=== PATIENT | male | born 1975 | race Caucasian/White ===

== ENCOUNTER 2017-11-30 20:23 | Emergency (ER) | payer OTHER, SELFPAY ==
[2017-11-30 21:26] LABS: Urine Blood NEGATIVE (NEG); Urine Glucose NEGATIVE (NEG); Urine Protein TRACE (NEG); Urine pH 5.5 (5.0-7.0)
[2017-11-30] MEDS ORDERED: KETOROLAC 30 MG/ML INJ ONE (21:51)
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
== END 2017-11-30 22:51 | disposition home or self-care (01) ==
LOC: ER 20:23
DX: S06.0X0A Concussion without loss of consciousness, initial encounter (principal); S20.219A Contusion of unspecified front wall of thorax, initial encounter; S30.1XXA Contusion of abdominal wall, initial encounter; V29.40XA Motorcycle driver injured in collision with unspecified motor vehicles in traffic accident, initial encounter; I10 Essential (primary) hypertension; F17.210 Nicotine dependence, cigarettes, uncomplicated
CPT/HCPCS: 70450; 71260; 72125; 74177; 81003; 96374; 99285; Q9967

== ENCOUNTER 2019-04-17 12:37 | Emergency (ER) | payer SELFPAY ==
--- NOTE | 2019-04-17 14:09 | RAD REPORT ---
EXAM DESCRIPTION: RAD - Shoulder Right 2 View - 04/17/2019 1:56 pm CLINICAL HISTORY: PAIN COMPARISON: No comparisons FINDINGS: Mild AC joint and glenohumeral arthritic changes are present. No fracture or dislocation i s seen.
[2019-04-17] MEDS ORDERED: HYDROCODONE/APAP 7.5/325 MG TAB ONE (14:10)
--- NOTE | 2019-04-17 14:18 | ER ---
Nurse's Notes [facility] Name: Choco Garcia Age: 43 yrs Sex: Male : 1975 Arrival Date: 04/17/2019 Time: 12:41 Bed 11 Private MD: Diagnosis: Pain in right shoulder Presentation: 04/17 12:54 Presenting complaint: Patient states: previous shoulder injury a long time ago, iw re-injured today while lifting something heavy. Transition of care: patient was not received from another setting of care. Onset of symptoms was April 17, 2019. Risk Assessment: Do you want to hurt yourself or someone else? Patient reports no desire to harm self or others. Initial Sepsis Screen: Does the patient meet any 2 criteria? No. Patient's initial sepsis screen is negative. Does the patient have a suspected source of infection? No. Patient's initial sepsis screen is negative. Care prior to arrival: None. 12:54 Method Of Arrival: Ambulatory iw 12:54 Acuity: BRENDA 4 iw Historical: - Allergies: 12:55 No Known Allergies; iw - Home Meds: 14:15 UNKNOWN HTN MEDICATION [Active]; tw2 - PMHx: 12:55 Hypertension; COPD; iw - PSHx: 12:55 None; iw - Immunization history:: Adult Immunizations. - Social history:: Smoking status: Patient uses tobacco products, smokes one pack cigarettes per day. - Ebola Screening: : Patient negative for fever greater than or equal to 101.5 degrees Fahrenheit, and additional compatible Ebola Virus Disease symptoms Patient denies exposure to infectious person Patient denies travel to an Ebola-affected area in the 21 days before illness onset No symptoms or risks identified at this time. Screenin:57 Abuse screen: Denies threats or abuse. Denies injuries from another. Nutritional iw screening: No deficits noted. Tuberculosis screening: No symptoms or risk factors identified. Fall Risk None identified. Assessment: 13:56 General: Appears in no apparent distress. Behavior is calm, cooperative. Pain: iw Complains of pain in anterior aspect of right shoulder and posterior aspect of right shoulder. Neuro: Level of Consciousness is awake, alert, obeys commands, Oriented to person, place, time, situation, Moves all extremities. Cardiovascular: Patient's skin is warm and dry. Respiratory: Airway is patent Respiratory effort is even, unlabored. Derm: Skin is intact, is healthy with good turgor. Musculoskeletal: Range of motion: limited in right shoulder. Vital Signs: 12:55 BP 140 / 99; Pulse 91; Resp 16; Temp 98.0; Pulse Ox 100% ; Weight 81.65 kg; Height 5 iw ft. 8 in. (172.72 cm); Pain 9/10; 12:55 Body Mass Index 27.37 (81.65 kg, 172.72 cm) iw ED Course: 12:41 Patient arrived in ED. mr 12:54 Triage completed. iw 12:55 Arm band placed on. iw 12:58 Janeen Lynn FNP-C is PHCP. kb 12:59 Jeff Wright MD is Attending Physician. kb 13:34 Bed in low position. Call light in reach. Adult w/ patient. tw2 13:55 X-ray completed. Portable x-ray completed in exam room. Patient tolerated procedure jb2 well. 13:56 Arelis Padilla, RN is Primary Nurse. iw 14:14 Shoulder Right (2 View) XRAY In Process Unspecified. EDMS 14:39 No provider procedures requiring assistance completed. Patient did not have IV access iw during this emergency room visit. Administered Medications: 14:15 Drug: Angelica (7.5 mg-325 mg) 1 tabs {Note: RASS 0.} Route: PO; tw2 Outcome: 14:17 Discharge ordered by MD. kb 14:39 Discharged to home ambulatory. iw 14:39 Condition: good 14:39 Discharge instructions given to patient, family, Instructed on discharge instructions, follow up and referral plans. medication usage, Demonstrated understanding of instructions, follow-up care, medications, Prescriptions given X 2. 14:40 Patient left the ED. iw Signatures: Dispatcher [employer] EDMS Janeen Lynn FNP-C FNP-Missael Archana Bennett Jesse jb2 Arelis Padilla, RN RN iw Bree Johnson RN RN tw2 Corrections: (The following items were deleted from the chart) 14:15 12:55 Home Meds: None; iw tw2
--- NOTE | 2019-04-17 14:19 | EDPHYS ---
Physician Documentation [facility] Name: Choco Garcia Age: 43 yrs Sex: Male : 1975 Arrival Date: 04/17/2019 Time: 12:41 Bed 11 Private MD: ED Physician Jeff Wright HPI: 04/17 14:12 This 43 yrs old Male presents to ER via Ambulatory with complaints of kb Shoulder Pain. 14:12 The patient or guardian complains of an injury, pain, that is acute. right shoulder. kb Context: The problem was sustained at home, resulted from pulling on 125# sack of rice, The patient experiences decreased range of motion, The patient reports no obvious deformity. Onset: The symptoms/episode began/occurred this morning. Modifying factors: the symptoms are alleviated by nothing. The symptoms are aggravated by movement. Associated signs and symptoms: The patient has no apparent associated signs or symptoms. Severity of symptoms: At their worst the symptoms were moderate, in the emergency department the symptoms are unchanged. Treatment prior to arrival includes: no previous treatment. The patient has not experienced similar symptoms in the past. The patient has not recently seen a physician. Historical: - Allergies: 12:55 No Known Allergies; iw - Home Meds: 14:15 UNKNOWN HTN MEDICATION [Active]; tw2 - PMHx: 12:55 Hypertension; COPD; iw - PSHx: 12:55 None; iw - Immunization history:: Adult Immunizations. - Social history:: Smoking status: Patient uses tobacco products, smokes one pack cigarettes per day. - Ebola Screening: : Patient negative for fever greater than or equal to 101.5 degrees Fahrenheit, and additional compatible Ebola Virus Disease symptoms Patient denies exposure to infectious person Patient denies travel to an Ebola-affected area in the 21 days before illness onset No symptoms or risks identified at this time. ROS: 14:17 Constitutional: Negative for fever, chills, and weight loss, Neck: Negative for injury, kb pain, and swelling, Cardiovascular: Negative for chest pain, palpitations, and edema, Respiratory: Negative for shortness of breath, cough, wheezing, and pleuritic chest pain, Abdomen/GI: Negative for abdominal pain, nausea, vomiting, diarrhea, and constipation, Back: Negative for injury and pain, Skin: Negative for injury, rash, and discoloration, Neuro: Negative for headache, weakness, numbness, tingling, and seizure. 14:17 MS/extremity: Positive for pain. Exam: 14:16 Constitutional: This is a well developed, well nourished patient who is awake, alert, kb and in no acute distress. Head/Face: Normocephalic, atraumatic. ENT: Nares patent. No nasal discharge, no septal abnormalities noted. Tympanic membranes are normal and external auditory canals are clear. Oropharynx with no redness, swelling, or masses, exudates, or evidence of obstruction, uvula midline. Mucous membranes moist. Neck: Trachea midline, no thyromegaly or masses palpated, and no cervical lymphadenopathy. Supple, full range of motion without nuchal rigidity, or vertebral point tenderness. No Meningismus. Chest/axilla: Normal chest wall appearance and motion. Nontender with no deformity. No lesions are appreciated. Cardiovascular: Regular rate and rhythm with a normal S1 and S2. No gallops, murmurs, or rubs. Normal PMI, no JVD. No pulse deficits. Respiratory: Lungs have equal breath sounds bilaterally, clear to auscultation and percussion. No rales, rhonchi or wheezes noted. No increased work of breathing, no retractions or nasal flaring. Abdomen/GI: Soft, non-tender, with normal bowel sounds. No distension or tympany. No guarding or rebound. No evidence of tenderness throughout. Skin: Warm, dry with normal turgor. Normal color with no rashes, no lesions, and no evidence of cellulitis. Neuro: Awake and alert, GCS 15, oriented to person, place, time, and situation. Cranial nerves II-XII grossly intact. Motor strength 5/5 in all extremities. Sensory grossly intact. Cerebellar exam normal. Normal gait. 14:16 Musculoskeletal/extremity: Extremities: grossly normal except: noted in the right shoulder: decreased ROM, pain, tenderness, ROM: limited active range of motion due to pain, Circulation is intact in all extremities. Sensation intact. Vital Signs: 12:55 BP 140 / 99; Pulse 91; Resp 16; Temp 98.0; Pulse Ox 100% ; Weight 81.65 kg; Height 5 iw ft. 8 in. (172.72 cm); Pain 9/10; 12:55 Body Mass Index 27.37 (81.65 kg, 172.72 cm) MDM: 13:41 Patient medically screened. kb 14:11 Data reviewed: vital signs, nurses notes. Data interpreted: Pulse oximetry: on room air kb is 100 %. Interpretation: normal. Counseling: I had a detailed discussion with the patient and/or guardian regarding: the historical points, exam findings, and any diagnostic results supporting the discharge/admit diagnosis, radiology results, the need for outpatient follow up, a orthopedic surgeon, to return to the emergency department if symptoms worsen or persist or if there are any questions or concerns that arise at home. 04/17 12:56 Order name: Shoulder Right (2 View) XRAY; Complete Time: 14:31 04/17 14:08 Order name: Sling; Complete Time: 14:15 kb Administered Medications: 14:15 Drug: [place] (7.5 mg-325 mg) 1 tabs {Note: RASS 0.} Route: PO; tw2 Disposition: 04/17/19 14:17 Discharged to Home. Impression: Pain in right shoulder. - Condition is Stable. - Discharge Instructions: Shoulder Pain, [id number]. - Prescriptions for Cyclobenzaprine 10 mg Oral Tablet - take 1 tablet by ORAL route every 8 hours As needed; 21 tablet. Diclofenac Sodium 75 mg Oral Tablet, Delayed Release (E.C.) - take 1 tablet by ORAL route 2 times per day As needed; 30 tablet. - Medication Reconciliation Form, Thank You Letter, Antibiotic Education, Prescription Opioid Use form. - Follow up: Emergency Department; When: As needed; Reason: Worsening of condition. Follow up: Private Physician; When: 2 - 3 days; Reason: Recheck today's complaints, Continuance of care, Re-evaluation by your physician. Addendum: 04/18/2019 20:34 Co-signature as Attending Physician, Jeff Wright MD I agree with the assessment and c snowden plan of care. Signatures: Dispatcher [employer] Janeen Mueller, JERRY-Meghan EDWARDS-Jeff Mai MD MD cha Williams, Irene, RN RN Bree Johnson RN RN tw2 Corrections: (The following items were deleted from the chart) 04/17 14:15 12:55 Home Meds: None; tw 14:40 14:17 04/17/2019 14:17 Discharged to Home. Impression: Pain in right shoulder. iw Condition is Stable. Forms are Medication Reconciliation Form, Thank You Letter, Antibiotic Education, Prescription Opioid Use. Follow up: Emergency Department; When: As needed; Reason: Worsening of condition. Follow up: Private Physician; When: 2 - 3 days; Reason: Recheck today's complaints, Continuance of care, Re-evaluation by your physician. kb
== END 2019-04-17 14:40 | disposition home or self-care (01) ==
LOC: ER 12:37
DX: M25.511 Pain in right shoulder (principal); I10 Essential (primary) hypertension; J44.9 Chronic obstructive pulmonary disease, unspecified; F17.210 Nicotine dependence, cigarettes, uncomplicated
CPT/HCPCS: 99283

== ENCOUNTER 2020-02-09 20:10 | Inpatient (IN) | payer SELFPAY ==
--- NOTE | 2020-02-09 21:06 | RAD REPORT ---
EXAM DESCRIPTION: CT - Ct Stroke Brain Wo Cont - 02/09/2020 8:52 pm CLINICAL HISTORY: WEAKNESS Headache, drowsiness, CVA symptomology COMPARISON: HEAD BRAIN W O CONTRAST dated 03/07/2013 TECHNIQUE: All CT scans are performed using dose optimization technique as appropriate and may inclu de automated exposure control or mA/KV adjustment according to patient size. FINDINGS: No intracranial hemorrhage, hydrocephalus or extra-axial fluid collection.No areas of brai n edema or evidence of midline shift. The paranasal sinuses and mastoids are clear. The calvarium is intact. IMPRESSION: No acute intracranial abnormality. The findings were discussed with Gutierrez Marshall on 02/09/2020 at 9:01 p.m. by telephone.
--- NOTE | 2020-02-09 21:24 | RAD REPORT ---
EXAM DESCRIPTION: RAD - Chest Single View - 02/09/2020 9:16 pm CLINICAL HISTORY: .. Chest pain. COMPARISON: Chest Pa And Lat (2 Views) dated 04/18/2017 FINDINGS: Portable technique limits examination quality. The lungs are grossly clear. The heart is normal in size. No displaced fractures. IMPRESSION: No acute intrathoracic process suspected.
[2020-02-09 21:43] LABS: Absolute Lymphocytes (CBC) 3.2 K/uL (0.7-4.9); Hematocrit 48.5 % (39.6-49.0); MPV 8.7 fL (7.6-11.3); RBC Red Blood Cell Count 5.24 M/uL (4.33-5.43)
[2020-02-09] MEDS ORDERED: KETOROLAC 30 MG/ML INJ ONE (21:47)
[2020-02-09 21:48] LABS: Protime INR 0.86
[2020-02-09 22:01] LABS: Barbiturates NEGATIVE (NEGATIVE); Benzodiazepines NEGATIVE (NEGATIVE); Cocaine NEGATIVE (NEGATIVE); METHAMPHETAM NEGATIVE (NEGATIVE); Methadone NEGATIVE (NEGATIVE); Opiates NEGATIVE (NEGATIVE); Phencyclidine NEGATIVE (NEGATIVE); THC Cannibis NEGATIVE (NEGATIVE)
[2020-02-09 22:06] LABS: ALT/SGPT 36 U/L (12-78); AST/SGOT 44 U/L (15-37); Albumin 3.8 g/dL (3.4-5.0); Alkaline Phosphatase 73 U/L (45-117); BUN Blood Urea Nitrogen 8 mg/dL (7-18); Bicarbonate 24 mmol/L (21-32); Bilirubin Direct < 0.1 mg/dL (0-0.2); Bilirubin Total 0.3 mg/dL (0.2-1.0); Glucose Level 76 mg/dL (74-106); Lipase 281 U/L (73-393); Potassium 3.7 mmol/L (3.5-5.1); Protein, Total 8.1 g/dL (6.4-8.2); Sodium Level 142 mmol/L (136-145); Troponin (Emerg Dept Use Only) < 0.02 ng/mL (0.0-0.045)
--- NOTE | 2020-02-09 22:22 | EDPHYS ---
Physician Documentation [facility] Name: Choco Garcia Age: 44 yrs Sex: Male : 1975 Arrival Date: 02/09/2020 Time: 20:17 Bed 15 Private MD: ED Physician Last Woodruff HPI: 02/08 23:25 This 44 yrs old Male presents to ER via EMS with complaints of right sided tw4 weakness and numbness. 23:25 The patient's problem is reported as weakness, in the right upper extremity, in the tw4 right lower extremity, in the right side of face. Duration: yesterday, The episode is continuous. Context: the episode(s) was witnessed, by family, symptoms became apparent at 00:00. The symptoms are alleviated by nothing. The symptoms are aggravated by nothing. Severity of symptoms: At their worst the symptoms were moderate in the emergency department the symptoms are unchanged. The patient has not experienced similar symptoms in the past. Historical: - Allergies: 20:00 No Known Allergies; jb4 - Home Meds: 20:00 None [Active]; jb4 - PMHx: 20:00 COPD; Hypertension; jb4 - PSHx: 20:00 None; jb4 - Immunization history:: Adult Immunizations unknown. - Social history:: Smoking status: Patient reports the use of cigarette tobacco products, smokes one-half pack cigarettes per day, Patient uses alcohol, admits to "couple of beers" a day. Patient/guardian denies using street drugs. - Family history:: Pt reports a family history of stroke.. ROS: 23:25 Constitutional: Negative for fever, chills, and weight loss, Eyes: Negative for injury, tw4 pain, redness, and discharge, Cardiovascular: Negative for chest pain, palpitations, and edema, Respiratory: Negative for shortness of breath, cough, wheezing, and pleuritic chest pain, Abdomen/GI: Negative for abdominal pain, nausea, vomiting, diarrhea, and constipation, Back: Negative for injury and pain, MS/Extremity: Negative for injury and deformity, Skin: Negative for injury, rash, and discoloration. 23:36 Neuro: Positive for numbness, weakness. tw4 Exam: 23:36 Radiologist reports: no acute findings tw4 23:36 Constitutional: This is a well developed, well nourished patient who is awake, alert, and in no acute distress. Head/Face: Normocephalic, atraumatic. Chest/axilla: Normal chest wall appearance and motion. Nontender with no deformity. No lesions are appreciated. Cardiovascular: Regular rate and rhythm with a normal S1 and S2. No gallops, murmurs, or rubs. Normal PMI, no JVD. No pulse deficits. Respiratory: Lungs have equal breath sounds bilaterally, clear to auscultation and percussion. No rales, rhonchi or wheezes noted. No increased work of breathing, no retractions or nasal flaring. Abdomen/GI: Soft, non-tender, with normal bowel sounds. No distension or tympany. No guarding or rebound. No evidence of tenderness throughout. Back: No spinal tenderness. No costovertebral tenderness. Full range of motion. Skin: Warm, dry with normal turgor. Normal color with no rashes, no lesions, and no evidence of cellulitis. MS/ Extremity: Pulses equal, no cyanosis. Neurovascular intact. Full, normal range of motion. 23:36 Neuro: Orientation: is normal, Mentation: is normal, Memory: is normal, Cranial nerves: CN II- XII are normal as tested, Cerebellar function: is grossly normal, Motor: Strength is 3/5 in the right arm and right leg. Vital Signs: 20:00 BP 144 / 97 LA Sitting; Pulse 98 LA; Resp 16; Temp 98.0(TE); Pulse Ox 96% on R/A; jb4 Weight 81.65 kg (R); Height 5 ft. 8 in. (172.72 cm) (R); Pain 9/10; 21:10 BP 140 / 97; Pulse 90; Resp 16; Pulse Ox 97% on R/A; jb4 22:00 BP 136 / 95; Pulse 84; Resp 16; Pulse Ox 98% on R/A; jb4 23:00 BP 149 / 104; Pulse 76; Resp 16; Pulse Ox 98% on R/A; jb4 20:00 Body Mass Index 27.37 (81.65 kg, 172.72 cm) jb4 NIH Stroke Scale Scores: 20:06 NIHSS Score: 13 jb4 MDM: 22:22 Patient medically screened. 4 23:36 Data reviewed: vital signs, nurses notes. Data interpreted: Pulse oximetry: tw4 Interpretation: normal. Counseling: I had a detailed discussion with the patient and/or guardian regarding: the historical points, exam findings, and any diagnostic results supporting the discharge/admit diagnosis. Physician consultation: Shaheen Carrasquillo MD regarding admission, to the telemetry unit. patient's condition, need to evaluate the patient as soon as possible, and will see patient in inpatient room. Special discussion:. 02/08 20:36 Order name: UDS 02/08 20:36 Order name: Lipase 02/08 20:36 Order name: Hepatic Function 02/08 20:36 Order name: Troponin (emerg Dept Use Only) 02/08 20:36 Order name: Basic Metabolic Panel 02/08 20:36 Order name: CBC with Diff 02/08 20:36 Order name: Protime (+inr) 02/08 20:36 Order name: Ptt, Activated 02/08 20:36 Order name: CT Stroke Brain w/o Contrast 02/08 20:36 Order name: Stroke CXR 1 View 02/08 20:36 Order name: EKG; Complete Time: 20:37 02/08 20:36 Order name: Accucheck; Complete Time: 21:10 02/08 20:36 Order name: Cardiac monitoring; Complete Time: 20:47 02/08 20:36 Order name: EKG - Nurse/Tech; Complete Time: 20:47 02/08 20:36 Order name: IV Saline Lock; Complete Time: 20:47 02/08 20:36 Order name: Labs collected and sent; Complete Time: 21:10 02/08 20:36 Order name: NPO; Complete Time: 20:47 02/08 20:36 Order name: O2 Per Protocol; Complete Time: 20:47 02/08 20:36 Order name: O2 Sat Monitoring; Complete Time: 20:47 02/08 20:36 Order name: Stroke Swallow Screen; Complete Time: 20:47 tw4 EC:36 Rate is 91 beats/min. Rhythm is regular. QRS [place] is Normal. DE interval is normal. QRS tw4 interval is normal. QT interval is normal. No Q waves. T waves are Normal. No ST changes noted. Clinical impression: Normal ECG. Interpreted by me. Reviewed by me. Administered Medications: 21:43 Drug: TORadol 30 mg Route: IVP; Site: left antecubital; jb4 23:13 Follow up: Response: No adverse reaction; Pain is decreased jb4 Disposition: 02/09/20 22:22 Hospitalization ordered by Shaheen Carrasquillo for Inpatient Admission. Preliminary diagnosis are Cerebrovascular disease, unspecified, subacute CVA. - Bed requested for Telemetry/MedSurg (Inpatient). - Status is Inpatient Admission. jb4 - Condition is Fair. - Problem is new. - Symptoms are unchanged. NIH Stroke Scale - NIH Stroke Score Date: 02/09/2020 Time: 20:06 Total Score = 13 1a. Level of Consciousness (LOC) - 0(Alert) 1b. Level of Consciousness (LOC) (Year \\T\\ Age) - 0(Both) 1c. LOC Commands (Open \\T\\ Closes Eyes/Board Stacker) - 0(Both) 2. Best Gaze (Lateral Gaze Paresis) - 0(Normal) 3. Visual Field Loss - 2(Complete hemianopia) 4. Facial Palsy - 1(Minor Paralysis) 5a. Left Arm: Motor (10-second hold) - 0(No drift) 5b. Right Arm: Motor (10-second hold) - 2(Drift, some effort against gravity) 6a. Left Leg: Motor (5-second hold - always test supine) - 0(No drift) 6b. Right Leg: Motor (5-second hold - always test supine) - 3(No effort against gravity) 7. Limb Ataxia (finger/nose \\T\\ heel/flores - test with eyes open) - 2(Present in two limbs) 8. Sensory Loss (pinprick arms/legs/face) - 2(Severe to total loss) 9. Best Language: Aphasia (description/naming/reading) - 0(No aphasia) 10. Dysarthria (speech clarity - read or repeat words) - 0(Normal) 11. Extinction and Inattention (visual/tactile/auditory/spatial/personal) - 1(Present) Initials: jb4 Signatures: Dispatcher [employer] EDMS Tiffany Marcus RN RN Edil Lundberg RN RN jb4 Last Woodruff MD MD tw4 Corrections: (The following items were deleted from the chart) 22:44 22:22 Hospitalization Ordered by Shaheen Carrasquillo MD for Inpatient Admission. mw Preliminary diagnosis is Cerebrovascular disease, unspecified; subacute CVA. Bed requested for Telemetry/MedSurg (Inpatient). Status is Inpatient Admission. Condition is Fair. Problem is new. Symptoms are unchanged. tw4 23:43 22:44 02/09/2020 22:22 Hospitalization Ordered by Shaheen Carrasquillo MD for jb4 Inpatient Admission. Preliminary diagnosis is Cerebrovascular disease, unspecified; subacute CVA. Bed requested for Telemetry/MedSurg (Inpatient). Status is Inpatient Admission. Condition is Fair. Problem is new. Symptoms are unchanged. mw
--- NOTE | 2020-02-09 22:22 | ER ---
Nurse's Notes [facility] Name: Choco Garcia Age: 44 yrs Sex: Male : 1975 Arrival Date: 02/09/2020 Time: 20:17 Bed 15 Private MD: Diagnosis: Cerebrovascular disease, unspecified;subacute CVA Presentation: 02/08 20:00 Chief complaint: EMS states: PT was sitting down in chair when he started to feel jb4 "funny/not right". He tried to get up and felt weakness,numbness, and tingling through his entire right side. Reports limited function on the right side. Last set of vitals prior to arrival 146/94, 99, 98% 2L NC. 20:00 Coronavirus screen: Proceed with normal triage. Ebola Screen: No symptoms or risks jb4 identified at this time. Initial Sepsis Screen: Does the patient meet any 2 criteria? HR > 90 bpm. Yes Does the patient have a suspected source of infection? No. Patient's initial sepsis screen is negative. Risk Assessment: Do you want to hurt yourself or someone else? Patient reports no desire to harm self or others. Onset of symptoms was February 09, 2020 at 00:00. Transition of care: patient was not received from another setting of care. 20:00 Method Of Arrival: EMS: [facility] jb4 20:00 Acuity: BRENDA 3 jb4 20:06 An acute neurological deficit is present. The charge nurse has been notified. jb4 Pre-hospital glucose is not applicable to this patient. Stroke Activation: Physician: Stroke Attending; Name: ; Notified At: ; Arrived At: Physician: Chief Stroke Resident; Name: ; Notified At: ; Arrived At: Physician: Stroke Resident; Name: ; Notified At: ; Arrived At: Physician: ED Attending; Name: ; Notified At: ; Arrived At: Physician: ED Resident; Name: ; Notified At: ; Arrived At: 20:06 Symptoms occurred at 0000 this morning, ER physician states " do not call a code jb4 stroke, he is 20 hours outside the window." Historical: - Allergies: 20:00 No Known Allergies; jb4 - Home Meds: 20:00 None [Active]; jb4 - PMHx: 20:00 COPD; Hypertension; jb4 - PSHx: 20:00 None; jb4 - Immunization history:: Adult Immunizations unknown. - Social history:: Smoking status: Patient reports the use of cigarette tobacco products, smokes one-half pack cigarettes per day, Patient uses alcohol, admits to "couple of beers" a day. Patient/guardian denies using street drugs. - Family history:: Pt reports a family history of stroke.. Screenin:06 Abuse screen: Denies threats or abuse. Nutritional screening: No deficits noted. jb4 Tuberculosis screening: No symptoms or risk factors identified. Fall Risk Fall in past 12 months (25 points). IV access (20 points). Gait- Impaired (20 pts.). Mental Status- Oriented to own ability (0 pts). Total [place] Fall Scale indicates High Risk Score (45 or more points). Fall prevention measures have been instituted. Side Rails Up X 2 Placed Close to Nursing Station Frequent Obs/Assessments Occuring As available patient and family educated on Fall Prevention Program and Strategies. Assessment: 20:06 VAN Scoring: Arm Drift: Minor drift Visual Disturbance: Patient reports double vision. jb4 Provider notified of +VAN scoring. Aphasia: No aphasia noted. Neglect: Patient is unable to feel both sides of body being touched at the same time. Provider notified of +VAN scoring. The patient has not been NPO before screening. The patient is alert, and able to follow commands. The patient does not exhibit slurred or garbled speech. The patient is not exhibiting difficulty speaking. The patient does not exhibit difficulty understanding words. The patient is able to swallow own secretions with no drooling or need for suction. Patient tolerated one teaspoon of water. No drooling, immediate coughing, gurgling, or clearing of the throat was noted. The patient tolerated 90mL of water. No drooling, immediate coughing, gurgling, or clearing of the throat was noted. The patient passed the bedside swallow screening. Oral medications may be given as ordered. Contact Physician for further diet orders. Provider notified of bedside swallow screening results: Lats Woodruff MD. T-PA (Activase) Screening: Contraindications: Patient reports onset of signs and symptoms of stroke greater than 6 hours ago: Yes. General: Appears in no apparent distress. uncomfortable, Behavior is calm, cooperative, Pt reports symptoms continue to worsen since starting at 0000 this morning, Provider notified, no new orders at this time.. Pain: Complains of pain in Right side. Pain does not radiate. Pain currently is 9 out of 10 on a pain scale. Quality of pain is described as tingling, Pain began 0000 Is continuous. Neuro: Level of Consciousness is awake, alert, obeys commands, Oriented to person, place, time, situation, Office Service Coordinator are weak on right Weakness in right from neck down, Gait is unsteady, Speech is normal, appears normal, unable to smile, EMS reports droop on left. Pt now reports being unable to smile.. Pupils are PERRLA, Numbness and tingling on the right side from the neck down.. Cardiovascular: Patient's skin is warm and dry. Rhythm is sinus rhythm. Respiratory: Airway is patent Respiratory effort is even, unlabored, Respiratory pattern is regular, symmetrical. GI: No signs and/or symptoms were reported involving the gastrointestinal system. : No signs and/or symptoms were reported regarding the genitourinary system. EENT: No signs and/or symptoms were reported regarding the EENT system. Derm: Skin is intact, Skin is pink, warm \\T\\ dry. Musculoskeletal: Circulation, motion, and sensation intact. Range of motion: limited in Right side extremities. 21:20 Reassessment: Patient appears in no apparent distress at this time. No changes from jb4 previously documented assessment. Patient and/or family updated on plan of care and expected duration. Pain level reassessed. Patient is alert, oriented x 3, equal unlabored respirations, skin warm/dry/pink. Pt reports pain remains 9/10, requesting "something for pain". Provider notified. ER Physician states " He cannot have anything until I come see him.". 22:30 Reassessment: Patient appears in no apparent distress at this time. Patient and/or jb4 family updated on plan of care and expected duration. Pain level reassessed. Patient is alert, oriented x 3, equal unlabored respirations, skin warm/dry/pink. 23:11 Reassessment: Patient appears in no apparent distress at this time. Patient and/or jb4 family updated on plan of care and expected duration. Pain level reassessed. Patient is alert, oriented x 3, equal unlabored respirations, skin warm/dry/pink. 23:42 Reassessment: Patient appears in no apparent distress at this time. Patient and/or jb4 family updated on plan of care and expected duration. Pain level reassessed. Patient is alert, oriented x 3, equal unlabored respirations, skin warm/dry/pink. Report given to SAEN Avalos. Vital Signs: 20:00 BP 144 / 97 LA Sitting; Pulse 98 LA; Resp 16; Temp 98.0(TE); Pulse Ox 96% on R/A; jb4 Weight 81.65 kg (R); Height 5 ft. 8 in. (172.72 cm) (R); Pain 9/10; 21:10 BP 140 / 97; Pulse 90; Resp 16; Pulse Ox 97% on R/A; jb4 22:00 BP 136 / 95; Pulse 84; Resp 16; Pulse Ox 98% on R/A; jb4 23:00 BP 149 / 104; Pulse 76; Resp 16; Pulse Ox 98% on R/A; jb4 20:00 Body Mass Index 27.37 (81.65 kg, 172.72 cm) jb4 NIH Stroke Scale Scores: 20:06 NIHSS Score: 13 jb4 ED Course: 20:00 Arm band placed on right wrist. jb4 20:17 Patient arrived in ED. 20:23 Edil Lundberg, SEAN is Primary Nurse. jb4 20:26 Triage completed. jb4 20:31 EKG done, by ED staff, reviewed by Last Woodruff MD. Maintain EMS IV. Dressing jp3 intact. Good blood return noted. Site clean \\T\\ dry. Gauge \\T\\ site: 20-gauge in LAC. Patient maintains SpO2 saturation greater than 95% on room air. 20:32 Bed in low position. Call light in reach. Side rails up X 1. Side rails up X2. Verbal jp3 reassurance given. wet inspector optical glass on. Pulse ox on. NIBP on. 20:35 Last Woodruff MD is Attending Physician. tw4 20:52 CT Stroke Brain w/o Contrast In Process Unspecified. EDMS 21:16 Stroke CXR 1 View In Process Unspecified. EDMS 22:21 Shaheen Carrasquillo MD is Hospitalizing Provider. tw4 23:13 No provider procedures requiring assistance completed. Patient admitted, IV remains in jb4 place. Administered Medications: 21:43 Drug: TORadol 30 mg Route: IVP; Site: left antecubital; jb4 23:13 Follow up: Response: No adverse reaction; Pain is decreased jb4 Outcome: 22:22 Decision to Hospitalize by Provider. tw4 23:42 Admitted to Med/surg accompanied by tiffanie, via wheelchair, room 215, with chart, Report jb4 called to SEAN Avalos 23:42 Condition: stable 23:42 Discharge instructions given to patient, family, Instructed on the need for admit, Demonstrated understanding of instructions. 23:43 Patient left the ED. jb4 NIH Stroke Scale - NIH Stroke Score Date: 02/09/2020 Time: 20:06 Total Score = 13 1a. Level of Consciousness (LOC) - 0(Alert) 1b. Level of Consciousness (LOC) (Year \\T\\ Age) - 0(Both) 1c. LOC Commands (Open \\T\\ Closes Eyes/Service Superintendent) - 0(Both) 2. Best Gaze (Lateral Gaze Paresis) - 0(Normal) 3. Visual Field Loss - 2(Complete hemianopia) 4. Facial Palsy - 1(Minor Paralysis) 5a. Left Arm: Motor (10-second hold) - 0(No drift) 5b. Right Arm: Motor (10-second hold) - 2(Drift, some effort against gravity) 6a. Left Leg: Motor (5-second hold - always test supine) - 0(No drift) 6b. Right Leg: Motor (5-second hold - always test supine) - 3(No effort against gravity) 7. Limb Ataxia (finger/nose \\T\\ heel/flores - test with eyes open) - 2(Present in two limbs) 8. Sensory Loss (pinprick arms/legs/face) - 2(Severe to total loss) 9. Best Language: Aphasia (description/naming/reading) - 0(No aphasia) 10. Dysarthria (speech clarity - read or repeat words) - 0(Normal) 11. Extinction and Inattention (visual/tactile/auditory/spatial/personal) - 1(Present) Initials: henrique Signatures: Dispatcher [employer] EDEdil Molina, RN RN jb4 Last Woodruff MD MD tw4 Maxime Schneider jp3 France Quesada RN RN
[2020-02-09] MEDS ORDERED: ACETAMINOPHEN 500 MG TAB PO PRN (23:44)
[2020-02-09] MEDS ORDERED: ONDANSETRON 4 MG/2 ML VIAL IV PRN (23:44)
[2020-02-10] MEDS: NA CHLORIDE 0.9% 1,000 ML IV SCH ×2 (00:04→14:46)
[2020-02-10 00:08] VITALS: BMI 24.7
--- NOTE | 2020-02-10 05:54 | EKG ---
Test Date: 2020-02-09 Test Time: 20:26:28 O And M Supervisor: MERLINE MEASUREMENT RESULTS: Intervals: Rate: 91 MT: 112 QRSD: 70 QT: 342 QTc: 420 [place]: P: 25 MT: 112 QRS: 58 T: 93 INTERPRETIVE STATEMENTS: Normal sinus rhythm Normal ECG Compared to ECG 04/18/2017 23:17:42 Short MT interval no longer present Electronically Signed On 02-10-20 05:53:28 CDT by Joseph Pack
[2020-02-10 05:55] LABS: Basophils % 0.9 % (0-1.3); Hematocrit 46.1 % (39.6-49.0); Lymphocytes % 29.3 % (15.3-44.8); MPV 8.7 fL (7.6-11.3); RBC Red Blood Cell Count 5.01 M/uL (4.33-5.43)
[2020-02-10 06:10] LABS: Albumin 3.5 g/dL (3.4-5.0); Bilirubin Total 0.3 mg/dL (0.2-1.0); Magnesium 2.3 mg/dL (1.8-2.4); Phosphorus 3.4 mg/dL (2.5-4.9); Potassium 3.6 mmol/L (3.5-5.1)
[2020-02-10 06:42] LABS: Protime INR 0.86
[2020-02-10] MEDS: ENOXAPARIN 40 MG/0.4 ML SQ SCH (08:43)
[2020-02-10] MEDS: CLOPIDOGREL 75 MG TABLET PO SCH (08:43)
[2020-02-10] MEDS: ASPIRIN EC 81 MG TAB PO SCH (08:43)
[2020-02-10] MEDS ORDERED: KCL 20 MEQ/100 mL IVPB 20 MEQ/100 ML BAG IV SCH (09:00)
[2020-02-10] MEDS ORDERED: POTASSIUM CL SA 10 MEQ TAB PO ONE (09:00)
--- NOTE | 2020-02-10 12:58 | P.HP ---
Certification for Inpatient Patient admitted to: Inpatient With expected LOS: >2 Midnights Patient will require the following post-hospital care: None Practitioner: I am a practitioner with admitting privileges, knowledge of patient current condition, hospital course, and medical plan of care. Services: Services provided to patient in accordance with Admission requirements found in Title 42 Section 412.3 of the Code of Federal Regulations Patient History Date of Service: 02/10/20 Reason for admission: Right sided weakness History of Present Illness: Patient is a 44-year-old gentleman who presents to the hospital with right-sided weakness. His symptoms started noon but he was not get any better so he came to the ER this evening. He was out of the window for tPA. CT of the head was negative. Concern was that he may have a TIA a.m. the symptoms have pretty much improved. Will go ahead and get a CT angio of the brain and carotid Doppler as well as echocardiogram. Patient be admitted to the hospital for CVA. Allergies No Known Allergies Allergy (Verified 02/09/20 23:48) Home Medications: NK [No Home Meds] 02/09/20 - Past Medical/Surgical History Has patient received pneumonia vaccine in the past: No Diabetic: No -: HYPERTENSION -: COPD -: Right shoulder surgery - Family History Father Family History: Reviewed- Non-Contributory - Social History Smoking Status: Current every day smoker Alcohol use: Yes CD- Drugs: No Caffeine use: Yes Place of Residence: Home Review of Systems 10-point ROS is otherwise unremarkable Physical Examination - Vital Signs Temperature: 97.8 F Blood Pressure: 158/91 Pulse: 81 Respirations: 18 Pulse Ox (%): 98 - Physical Exam General: Alert, In no apparent distress, Oriented x3 HEENT: Atraumatic, PERRLA, Mucous membr. moist/pink, EOMI, Sclerae nonicteric Neck: Supple, 2+ carotid pulse no bruit, No LAD, Without JVD or thyroid abnormality Respiratory: Clear to auscultation bilaterally, Normal air movement Cardiovascular: Regular rate/rhythm, Normal S1 S2, No murmurs Gastrointestinal: Normal bowel sounds, Soft and benign, Non-distended, No tenderness Musculoskeletal: No clubbing, No swelling, No tenderness Integumentary: No rashes Neurological: Normal gait, Normal speech, Normal tone, Sensation intact, Cranial nerves 3-12 intact, Normal affect, Abnormal strength (right sided weakness) Lymphatics: No axilla or inguinal lymphadenopathy - Studies Laboratory Data (last 24 hrs) 02/09/20 21:00: PT 10.2, INR 0.86, APTT 30.1 02/09/20 21:00: WBC 10.1, Hgb 16.4, Hct 48.5, Plt Count 235 02/09/20 21:00: Sodium 142, Potassium 3.7, BUN 8, Creatinine 1.02, Glucose 76, Total Bilirubin 0.3, AST 44 H, ALT 36, Alkaline Phosphatase 73, Lipase 281 Assessment & Plan - Problems (Diagnosis) (1) Right sided weakness Current Visit: Yes Status: Acute (2) Hypertension Current Visit: Yes Status: Acute (3) COPD (chronic obstructive pulmonary disease) Current Visit: Yes Status: Acute (4) CVA (cerebral vascular accident) Current Visit: Yes Status: Acute - Plan Plan: 1. Carotid Doppler 2. CT angio 3. Statin and anti-platelet therapy 4. Swallow eval 5. Nursing to get patient out of bed and ambulate; and difficulty physical therapy evaluation 6. Strict blood pressure control 7. GI and DVT prophylax Discharge Plan: Home Plan to discharge in: Greater than 2 days - Advance Directives Does patient have a Living Will: No Does patient have a Durable POA for Healthcare: No - Code Status/Comfort Care Code Status Assessed: Yes Code Status: Full Code Critical Care: No Time Spent Managing PTS Care (In Minutes): 45
[2020-02-10] MEDS ORDERED: METOPROLOL TARTRATE 5 MG/5 ML INJ IV PRN (16:34)
[2020-02-10] MEDS: NICOTINE 21 MG/PAT TD SCH (17:00)
--- NOTE | 2020-02-10 19:19 | RAD REPORT ---
EXAM DESCRIPTION: - CP - 02/10/2020 6:58 pm CLINICAL HISTORY: CVA COMPARISON: No comparisons TECHNIQUE: Real-time sonographic evaluation of bilateral carotid and vertebral systems was performed . Blount scale and Doppler interrogation were performed with waveform tracing bilaterally. FINDINGS: Normal high resistance waveforms are noted in both external carotid arteries. The common c arotid arteries and internal carotid arteries show normal low resistance waveforms. No significant plaque formation is seen. Peak systolic and end diastolic velocity values and the ICA/ CCA ratios are in the non-hemodynamically significant range. Antegrade flow seen in both vertebral arteries. Velocity values and ratios were recorded and are retained in the patient's imaging records. IMPRESSION: No significant atherosclerotic changes noted. No evidence of a hemodynamically significant stenosis.
[2020-02-10] MEDS ORDERED: ATORVASTATIN 20 MG TAB PO SCH (21:00)
[2020-02-11] MEDS: NA CHLORIDE 0.9% 1,000 ML IV SCH (02:56)
[2020-02-11 06:11] LABS: Potassium 3.8 mmol/L (3.5-5.1)
--- NOTE | 2020-02-11 06:32 | CON ---
Date of Consultation: 02/11/2020 Patient admitted on 02/09/2020. I saw the patient on 02/11/2020. Reason For Consultation: Bradycardia. History Of Present Illness: Mr. Garcia is a 44-year-old male, history of COPD and hypertension, who wa s admitted with right-sided numbness and weakness, presumably secondary to a TIA. He has had normal carotid, normal chest x-ray, normal CT of his head, normal EKG. Denied any cardiac symptoms. Was no addison to be bradycardic in the 50s without any hemodynamic compromise. Last blood pressure was 138/75. Denied any syncope. No cardiac symptoms reported in general. Past Medical History: As stated above. Allergies: NONE. Review of Systems: Negative. Social History: Positive for tobacco. Family History: Noncontributory. Physical Examination: Vital Signs: Blood pressure is 138/75. Vital Signs: Stable. Heart rate of 55. HEENT: Negative. Neck: Supple with no bruit. Chest: Clear. Cardiac: Normal. Abdomen: Benign. Extremities: Revealed no clubbing, cyanosis, or edema. Diagnostic Data: All within normal limits. His HDL was 80. Medications: Present treatment includes aspirin, Plavix, Lipitor, lisinopril, and Lovenox. Impression And Plan: 1.Status post transient ischemic attack. It seems to be resolved. He is on appropriate therapy wit h aspirin, Plavix, and Lipitor. 2.Hypertension, on lisinopril, fairly well controlled now. 3.Chronic obstructive pulmonary disease. 4.Bradycardia. I do not think this requires much intervention at this point. I agree with checking T4, TSH, and echo. He may need to have an event monitor as an outpatient to see if he is having mor e severe bradycardia. For now, certainly no plans for any intervention. CAESAR/CORKYL Voice ID: [id number] Report ID: [id number]
[2020-02-11 07:17] LABS: Thyroid Stimulating Hormone 1.71 uIU/mL (0.360-3.740)
--- NOTE | 2020-02-11 08:22 | RAD REPORT ---
EXAM DESCRIPTION: CTHead angio02/11/2020 7:53 am CLINICAL HISTORY: numbness COMPARISON: None TECHNIQUE: CT angiogram of the head was obtained. 3D MIPS reconstruction performed. All CT scans are performed using dose optimization technique as appropriate and may include automated exposure control or mA/KV adjustment according to patient size. FINDINGS: The basilar, right internal carotid, anterior cerebral, middle cerebral and posterior cere bral arteries are normal caliber. An aneurysm is not seen. Calcified plaque within the distal left internal carotid artery results in a moderate t stenosis A significant stenosis is not noted. IMPRESSION: Moderate stenosis distal left internal carotid artery
[2020-02-11] MEDS: NICOTINE 21 MG/PAT TD SCH (09:00)
[2020-02-11] MEDS ORDERED: POTASSIUM CL SA 10 MEQ TAB PO ONE (09:00)
[2020-02-11 09:17] VITALS: BP 149/86; TEMP 97.6
[2020-02-11] MEDS: ASPIRIN EC 81 MG TAB PO SCH (09:47)
[2020-02-11] MEDS: CLOPIDOGREL 75 MG TABLET PO SCH (09:48)
[2020-02-11] MEDS: ENOXAPARIN 40 MG/0.4 ML SQ SCH (09:48)
[2020-02-11 10:17] VITALS: O2SAT 99
[2020-02-11] MEDS ORDERED: NICOTINE 21 MG/PAT TD SCH (16:00)
[2020-02-11] MEDS ORDERED: lisinopriL 10 MG TAB PO SCH (17:00)
--- NOTE | 2020-02-12 01:52 | P.DS ---
Discharge Date: 02/11/20 Disposition: ROUTINE DISCHARGE Discharge Condition: GOOD Reason for Admission: Right sided weakness Consultations: Cardiology - Problems (1) Right sided weakness Status: Acute (2) Hypertension Status: Acute (3) COPD (chronic obstructive pulmonary disease) Status: Acute (4) CVA (cerebral vascular accident) Status: Acute Brief History of Present Illness: Patient is a 44-year-old gentleman who presents to the hospital with right-sided weakness. His symptoms started noon but he was not get any better so he came to the ER this evening. He was out of the window for tPA. CT of the head was negative. Concern was that he may have a TIA a.m. the symptoms have pretty much improved. Will go ahead and get a CT angio of the brain and carotid Doppler as well as echocardiogram. Patient be admitted to the hospital for CVA. Hospital Course: Patient workup has been unremarkable. CT angio did reveal moderate stenosis distal left internal carotid artery. Patient is clinically doing well and is stable for discharge at this time. Outpatient follow with PCP and Neurology as well as Cardiology for possible stent placement. Vital Signs/Physical Exam: Temp Pulse Resp BP Pulse Ox 97.6 F 81 17 149/86 H 99 02/11/20 08:00 02/11/20 08:00 02/11/20 08:00 02/11/20 08:00 02/11/20 08:00 General: Alert, In no apparent distress, Oriented x3 Laboratory Data at Discharge: WBC 6.7 K/uL (4.3-10.9) D 02/10/20 05:04 Hgb 15.7 g/dL (13.6-17.9) 02/10/20 05:04 Hct 46.1 % (39.6-49.0) 02/10/20 05:04 Plt Count 204 K/uL (152-406) 02/10/20 05:04 PT 10.2 SECONDS (9.5-12.5) 02/10/20 05:04 INR 0.86 02/10/20 05:04 APTT 29.0 SECONDS (24.3-36.9) 02/10/20 05:04 Sodium 139 mmol/L (136-145) 02/11/20 05:16 Potassium 3.8 mmol/L (3.5-5.1) 02/11/20 05:16 BUN 12 mg/dL (7-18) 02/11/20 05:16 Creatinine 0.94 mg/dL (0.55-1.3) 02/11/20 05:16 Glucose 97 mg/dL (74-106) 02/11/20 05:16 Phosphorus 3.4 mg/dL (2.5-4.9) 02/10/20 05:04 Magnesium 2.3 mg/dL (1.8-2.4) 02/10/20 05:04 Total Bilirubin 0.3 mg/dL (0.2-1.0) 02/10/20 05:04 AST 37 U/L (15-37) 02/10/20 05:04 ALT 35 U/L (12-78) 02/10/20 05:04 Alkaline Phosphatase 76 U/L (45-117) 02/10/20 05:04 Triglycerides 168 mg/dL (<150) H 02/10/20 05:04 Cholesterol 158 mg/dL (<200) 02/10/20 05:04 HDL Cholesterol 79 mg/dL (40-60) H 02/10/20 05:04 Cholesterol/HDL Ratio 2.00 02/10/20 05:04 Lipase 281 U/L (73-393) 02/09/20 21:00 Home Medications: Aspirin [Aspirin EC 81 MG] 81 mg PO DAILY #30 tablet. 02/11/20 Atorvastatin Calcium [Lipitor*] 40 mg PO BEDTIME #30 tab 02/11/20 lisinopriL [Prinivil*] 10 mg PO DAILY #30 tab 02/11/20 New Medications: Aspirin [Aspirin EC 81 MG] 81 mg PO DAILY #30 tablet. Atorvastatin Calcium [Lipitor*] 40 mg PO BEDTIME #30 tab lisinopriL [Prinivil*] 10 mg PO DAILY #30 tab Patient Discharge Instructions: OK TO DC IV AND DC HOME. FOLLOW-UP WITH PRIMARY CARE PROVIDER IN 1-2 WEEKS. FOLLOW-UP WITH CARDIOLOGY in 2-4 weeks. FOLLOW- UP WITH NEUROLOGY in 2-4 weeks. RETURN TO THE ER IF symptoms worsen. CALL DR. XIE AT [phone] IF ANY QUESTIONS REGARDING HOSPITAL STAY. PLEASE CALL THE FLOOR AT [phone] IF ANY MEDICATION OR NURSING QUESTIONS. Diet: AHA Activity: Fall precautions Followup: Joseph Pack MD [ACTIVE - CAN ADMIT] - Michael Mei MD [ASSOCIATE-ACTIVE - CAN ADMIT] - Time spent managing pt's care (in minutes): 20
== END 2020-02-11 10:04 | disposition home or self-care (01) | DRG 65 ==
LOC: ER 20:10 → ERHOLD 23:31 → 2ND 23:33
PROVIDERS: ADMIT Hospitalist; ATTEND Hospitalist
DX: I63.9 Cerebral infarction, unspecified (principal); G81.91 Hemiplegia, unspecified affecting right dominant side; I10 Essential (primary) hypertension; J44.9 Chronic obstructive pulmonary disease, unspecified; R00.1 Bradycardia, unspecified; F17.200 Nicotine dependence, unspecified, uncomplicated; R29.713 NIHSS score 13; R20.0 Anesthesia of skin; R53.1 Weakness; Z79.82 Long term (current) use of aspirin; Z79.899 Other long term (current) drug therapy
CPT/HCPCS: 36415; 70450; 70496; 71045; 80048; 80053; 80061; 80076; 80307; 83690; 83735; 84100; 84439; 84443; 84484; 85025; 85610; 85730; 93005; 93880; 96374; 97112; 97116; 97161; 99285; J1650; J7030; Q9967; U0002

== ENCOUNTER 2022-02-16 20:53 | Emergency (ER) | payer SELFPAY ==
--- OUTSIDE RECORDS SUMMARY | 2022-02-16 20:55 | XMS REPORT | Continuity of Care Document ---
:1975 Author Organization [facility] t Address [facility] [place] [address] Care Team Providers Name Role Phone Unavailable Unavailable Unavailable Problems This patient has no known problems. Allergies, Adverse Reactions, Alerts This patient has no known allergies or adverse reactions. Medications This patient has no known medications. Procedures This patient has no known procedures. Results Test Description Test Time Test Comments Results Result Comments Source CBC W/AUTO DIFF WITH PLATELETS 2021-09-30 08:41:23 Test Item Value Reference Range Interpretation Comme nts WBC (test code = 1001) 7.5 K/UL 3.5-11.0 RBC (test code = 1002) 5.55 M/UL 4.50-6.10 HEMOGLOBIN (test code = 16.8 G/DL 13.5-17.0 1003) HEMATOCRIT (test code = 49.2 % 40.0-51.0 1004) MCV (test code = 1005) 88.6 fL 80.0-99.0 MCH (test code = 1006) 30.3 PG 25.0-33.0 MCHC (test code = 1007) 34.1 G/DL 31.0-36.0 RDW (test code = 1038) 13.0 % 11.5-15.0 NEUTROPHILS (test code = 65.1 % 1008) LYMPHOCYTES (test code = 22.4 % 1010) MONOCYTES (test code = 1011) 8.9 % EOSINOPHILS (test code = 1.3 % 1012) BASOPHILS (test code = 1013) 1.1 % IMMATURE GRANULOCYTES (test 1.2 % code = 1036) NUCLEATED RBCS (test code = 0.0 /100 WBC'S See_Comment [Automated message] The 1065) system which ge nerated this result transmit addison reference range : 0.0. The reference range was not used to interpr et this result as louis l/abnormal. PLATELET COUNT (test code = 378 K/UL 607-095 9184) ABSOLUTE NEUTROPHILS (test 4.91 K/UL 1.50-7.50 code = 1066) ABSOLUTE LYMPHOCYTES (test 1.69 K/UL 1.00-4.00 code = 1067) ABSOLUTE MONOCYTES (test 0.67 K/UL 0.20-1.00 code = 1068) ABSOLUTE EOSINOPHILS (test 0.10 K/UL 0.00-0.50 code = 1040) ABSOLUTE BASOPHILS (test 0.08 K/UL 0.00-0.20 code = 1069) ABS IMMATURE GRANULOCYTES 0.09 K/UL 0.00-0.10 (test code = 1020) ABS NUCLEATED RBCS (test 0.00 K/UL 0.00-0.11 code = 62135) LIPID [id number] 06:18:48 Test Item Value Reference Range Interpretation Comments CHOLESTEROL (test 164 MG/DL <200 code = 2210) TRIGLYCERIDES (test 97 MG/DL <150 code = 2232) HDL CHOLESTEROL (test 52 MG/DL >39 code = 2220) CALC LDL CHOL (test 93 MG/DL <100 NOTE: C ALCULATED LDL code = 2237) IS BASED ON CHYNA-MCLAIN METHOD WHICHINCLUDES ADJUSTABLE TRIGLYCERIDE:VL DL CHOLESTEROL RAT IO.THIS FACTOR VARIES B Y MEASURED TRIGLY CERIDE AND NON-HDLCHOL ESTEROL CONCENTRATIONS WITH INCREASED CALCU LATED LDL SEENIN HIGH ER TRIGLYCERIDE OR LOWER NON-HDL SPECIME NS. FOR MOREINFORMATION , SEE CLIENT ANNOUNCE MENT AT [email or web address] [email or web address] RATIO LDL/HDL 1.79 RATIO <3.55 (test code = 2238) COMPREHENSIVE METABOLIC [id number] 06:18:48 Test Item Value Reference Range Interpretation Comments GLUCOSE (test code = 103 MG/DL 70-99 H 2216) BUN (test code = 10 MG/DL 6-20 2207) CREATININE (test 0.85 MG/DL 0.80-1.40 code = 2214) eGFR (2020 CKD-EPI) 107 >60 (test code = 68077) ML/MIN/1.73 CALC BUN/CREAT (test 12 RATIO 6-28 code = 2235) SODIUM (test code = 137 MEQ/L 713-204 5950) POTASSIUM (test code 4.9 MEQ/L 3.5-5.4 = 2227) CHLORIDE (test code 102 MEQ/L 95-107 = 2214) CARBON DIOXIDE (test 21 MEQ/L 19-31 code = 220) CALCIUM (test code = 9.7 MG/DL 8.5-10.5 2208) PROTEIN, TOTAL (test 7.1 G/DL 6.1-8.3 code = 222) ALBUMIN (test code = 4.2 G/DL 3.5-5.2 2200) CALC GLOBULIN (test 2.9 G/DL 1.9-3.7 code = 2240) CALC A/G RATIO (test 1.4 RATIO 1.0-2.6 code = 2234) BILIRUBIN, TOTAL 0.2 MG/DL See_Comment [Automated message] (test code = 2206) The [employer] which generated this result transmitted ref erence range: <=1.2. T he reference range was not used to int erpret this result as normal/abnormal . ALKALINE PHOSPHATASE 90 U/L 40-118 (test code = 2203) AST (test code = 20 U/L 9-50 2217) ALT (test code = 18 U/L 5-50 UNLE SS 2218) OTHERWISE INDIC ATED, ALL TESTING PER [facility], [place] [place] [address] LABORATORY DIRE CTOR: JAMA GOEL M.D. CLIA NUMBER [id number] CAP ACCREDITATION N O. [id number]
--- NOTE | 2022-02-16 21:41 | RAD REPORT ---
EXAM DESCRIPTION: CT - Ct Stroke Brain Wo Cont - 02/16/2022 9:31 pm CLINICAL HISTORY: Neuro deficit, acute, stroke suspected COMPARISON: Head angio dated 02/11/2020; Ct Stroke Brain Wo Cont dated 02/09/2020 TECHNIQUE: Axial 5 millimeter thick images of the head were obtained without IV contrast. All CT scans are performed using dose optimization technique as appropriate and may include automated exposure control or mA/KV adjustment according to patient size. FINDINGS: No intracranial hemorrhage is present. There is no midline shift or significant mass effec t. Left cerebral hemisphere encephalomalacia is present along the posterior left frontal lobe. This i s new from 2019. Patchy decreased attenuation is present as well in the posterior left occipital lobe . This also appears to be chronic infarction change. Underlying chronic ischemic changes are seen in the cerebral white matter. Motion degradation is present and this limits fine detail of the gomez aldo er- white matter differentiation. This also limits assessment of subtle cortical edema or sulcal effa cement. No extra-axial fluid collections. Ventricles are normal. Mastoid air cells are clear. Right maxillary sinus mucosal thickening is present. No air-fluid levels . No globe or orbital content abnormality. Findings telephoned to Dr Collins 09:36 p.m. IMPRESSION: No intracranial hemorrhage is present. Old infarction changes are present in the left cerebral hemisphere and the patient has chronic ischem ic changes. The degree of underlying motion limits assessment of subtle infarction changes.
[2022-02-16 21:51] LABS: Absolute Lymphocytes (CBC) 3.3 K/uL (0.7-4.9); Hematocrit 45.7 % (39.6-49.0); Lymphocytes % 33.6 % (15.3-44.8); MPV 8.4 fL (7.6-11.3); RBC Red Blood Cell Count 5.03 M/uL (4.33-5.43)
[2022-02-16 22:00] LABS: Potassium 3.8 mmol/L (3.5-5.1); Protime INR 0.96
--- NOTE | 2022-02-17 00:02 | ER ---
Nurse's Notes [facility] Name: Choco Garcia Age: 46 yrs Sex: Male : 1975 Arrival Date: 02/16/2022 Time: 20:58 Bed 23 Private MD: Diagnosis: Altered mental status, unspecified;Slurred speech;Weakness-Right sided - residual;Paresthesia of skin-residual from prior stroke Presentation: 02/16 21:15 Chief complaint: Patient states: past history of stroke. right sided weakness. right kd3 sided numbness in the right arm and right leg. pt states last well known time at 1700 this evening. pt has history of CVA in the past and states that he usually has right sided deficits but the seem worse today. Coronavirus screen: Vaccine status: Patient reports being unvaccinated. Ebola Screen: No symptoms or risks identified at this time. 21:15 Method Of Arrival: Ambulatory kd3 22:06 Initial Sepsis Screen: Does the patient meet any 2 criteria? No. Patient's initial jb4 sepsis screen is negative. Does the patient have a suspected source of infection? No. Patient's initial sepsis screen is negative. Risk Assessment: Do you want to hurt yourself or someone else? Patient reports no desire to harm self or others. Onset of symptoms was February 15, 2022. Transition of care: patient was not received from another setting of care. 22:06 Acuity: BRENDA 2 jb4 22:09 An acute neurological deficit is present. The charge nurse has been notified. The kd3 patient has been moved to a treatment area. Stroke Activation: Physician: Stroke Attending; Name: KACEY; Notified At: 21:18; Arrived At: Physician: Chief Stroke Resident; Name: ; Notified At: 21:18; Arrived At: Physician: Stroke Resident; Name: ; Notified At: 21:18; Arrived At: Physician: ED Attending; Name: ; Notified At: 21:18; Arrived At: Physician: ED Resident; Name: ; Notified At: 21:18; Arrived At: Historical: - Allergies: 22:07 No Known Allergies; jb4 - PMHx: 22:07 COPD; Hypertension; CVA; jb4 - PSHx: 22:07 None; jb4 - Immunization history:: Adult Immunizations up to date. - Social history:: Smoking status: Patient reports the use of cigarette tobacco products, smokes one pack cigarettes per day. Screenin:08 Abuse screen: Denies threats or abuse. Nutritional screening: No deficits noted. jb4 Tuberculosis screening: No symptoms or risk factors identified. Fall Risk None identified. Assessment: 21:20 Reassessment: pt taken to CT at 2119. code stroke called from triage. kd3 21:35 The patient has not been NPO before screening. The patient is alert, and able to follow jb4 commands. The patient exhibits slurred or garbled speech. The patient is not exhibiting difficulty speaking. The patient does not exhibit difficulty understanding words. The patient is able to swallow own secretions with no drooling or need for suction. The patient failed the bedside swallow screening. The patient will be kept NPO until cleared by Speech Therapy or Physician. Provider notified of bedside swallow screening results: Seun Collins MD. 21:57 VAN Scoring: Arm Drift: Patients demonstrates NO arm weakness. Patient is VAN Negative. jb4 Visual Disturbance: Patient reports double vision. Provider notified of +VAN scoring. T-PA (Activase) Screening: Contraindications: Patient reports onset of signs and symptoms of stroke greater than 6 hours ago: Yes. General: Appears in no apparent distress. uncomfortable, Behavior is cooperative, anxious. Pain: Denies pain. Neuro: Level of Consciousness is awake, alert, obeys commands, Oriented to person, place, time, situation, Gait is steady, Speech is slurred, Facial droop on right, Pupils are PERRLA. Cardiovascular: Patient's skin is warm and dry. Respiratory: Airway is patent Respiratory effort is even, unlabored, Respiratory pattern is regular, symmetrical. Derm: Skin is intact, Skin is pink, warm \\T\\ dry. Musculoskeletal: Circulation, motion, and sensation intact. Range of motion: intact in all extremities. 22:52 Reassessment: Patient appears in no apparent distress at this time. Patient and/or jb4 family updated on plan of care and expected duration. Pain level reassessed. Patient is alert, oriented x 3, equal unlabored respirations, skin warm/dry/pink. 22:59 Patient has been NPO before screening. The patient is alert, and able to follow jb4 commands. The patient does not exhibit slurred or garbled speech. The patient is not exhibiting difficulty speaking. The patient does not exhibit difficulty understanding words. The patient is able to swallow own secretions with no drooling or need for suction. Patient tolerated one teaspoon of water. No drooling, immediate coughing, gurgling, or clearing of the throat was noted. The patient tolerated 90mL of water. No drooling, immediate coughing, gurgling, or clearing of the throat was noted. The patient passed the bedside swallow screening. Oral medications may be given as ordered. Contact Physician for further diet orders. Provider notified of bedside swallow screening results: Seun Collins MD. 23:00 Reassessment: Provider okayed pt to eat. jb4 02/17 00:00 Reassessment: Patient appears in no apparent distress at this time. Patient and/or jb4 family updated on plan of care and expected duration. Pain level reassessed. Patient is alert, oriented x 3, equal unlabored respirations, skin warm/dry/pink. 01:06 Reassessment: Patient appears in no apparent distress at this time. Patient and/or jb4 family updated on plan of care and expected duration. Pain level reassessed. Patient is alert, oriented x 3, equal unlabored respirations, skin warm/dry/pink. Pt verbalized intent to drive himself to receiving facility. Informed pt that he needed to be transferred via ambulance per ED physician. Pt refused, informed pt that per ED physician that would require the pt to leave AMA. Informed pt of the risk of worsening symptoms up to the point of . Pt states " I will be fine, nothing will happen. I have been here for 4-5 hours and ain't nothing happened yet." Pt signed AMA form and left ED with steady gait. Vital Signs: 02/16 21:18 Pulse 91; Pulse Ox 97% on R/A; kd3 22:00 BP 129 / 89; Pulse 84; Resp 16; Pulse Ox 98% on R/A; jb4 22:06 BP 114 / 89; Pulse 95; Resp 16; Pulse Ox 98% on R/A; jb4 22:59 BP 123 / 84; Pulse 85; Resp 16; Pulse Ox 97% on R/A; jb4 23:53 Temp 98.1; Weight 81.65 kg; mw2 02/17 00:15 BP 112 / 93; Pulse 89; Resp 16; Pulse Ox 97% on R/A; jb4 NIH Stroke Scale Scores: 02/16 21:57 NIHSS Score: 8 jb4 ED Course: 20:58 Patient arrived in ED. ja2 21:03 Seun Collins MD is Attending Physician. kdr 21:31 CT Stroke Brain w/o Contrast In Process Unspecified. EDMS 21:35 Edil Lundberg, SEAN is Primary Nurse. jb4 21:35 Inserted saline lock: 18 gauge in right antecubital area, using aseptic technique. jb4 Blood collected. 22:07 Triage completed. jb4 22:07 Arm band placed on right wrist. jb4 22:08 Patient has correct armband on for positive identification. Bed in low position. Call jb4 light in reach. Side rails up X 1. Client placed on continuous cardiac and pulse oximetry monitoring. NIBP monitoring applied. 22:33 CT Head Angio In Process Unspecified. EDMS 22:39 Stroke CXR 1 View In Process Unspecified. EDMS 23:49 initiated a transfer with Elayne from [facility] 02/17 01:05 No provider procedures requiring assistance completed. IV discontinued, intact, jb4 bleeding controlled, No redness/swelling at site. Pressure dressing applied. Administered Medications: No medications were administered Medication: 00:15 VIS not applicable for this client. jb4 Outcome: 00:01 ER care complete, transfer ordered by . kdr 01:05 AMA AMA form signed [facility] 01:05 Condition: improved 01:10 Patient left the ED. jb4 NIH Stroke Scale - NIH Stroke Score Date: 02/16/2022 Time: 21:57 Total Score = 8 1a. Level of Consciousness (LOC) - 0(Alert) 1b. Level of Consciousness (LOC) (Month \\T\\ Age) - 0(Both) 1c. LOC Commands (Open \\T\\ Closes Eyes/Clinical Care Coordinator) - 0(Both) 2. Best Gaze (Lateral Gaze Paresis) - 1(Partial gaze palsy) 3. Visual Field Loss - 1(Partial hemianopia) 4. Facial Palsy - 2(Partial paralysis) 5a. Left Arm: Motor (10-second hold) - 0(No drift) 5b. Right Arm: Motor (10-second hold) - 0(No drift) 6a. Left Leg: Motor (5-second hold - always test supine) - 0(No drift) 6b. Right Leg: Motor (5-second hold - always test supine) - 1(Drift) 7. Limb Ataxia (finger/nose \\T\\ heel/flores - test with eyes open) - 1(Present in one limb) 8. Sensory Loss (pinprick arms/legs/face) - 1(Mild to moderate loss) 9. Best Language: Aphasia (description/naming/reading) - 1(Mild to moderate aphasia) 10. Dysarthria (speech clarity - read or repeat words) - 0(Normal) 11. Extinction and Inattention (visual/tactile/auditory/spatial/personal) - 0(No abnormality) Initials: jb4 Signatures: Dispatcher [employer] EDMS Seun Collins MD MD [facility] Edil Lundberg RN RN jb4 Benita Hall2 Lin Jones Kyli, RN RN kd3 Corrections: (The following items were deleted from the chart) 02/16 22:13 21:15 Chief complaint: Patient states: past history of stroke. right sided kd3 weakness. right sided weakness. kd3 22:15 21:20 Reassessment: pt taken to CT at 2120 kd3 kd3 22:59 22:59 Patient tolerated one teaspoon of water. No drooling, immediate coughing, jb4 gurgling, or clearing of the throat was noted. The patient tolerated 90mL of water. No drooling, immediate coughing, gurgling, or clearing of the throat was noted. jb4
--- NOTE | 2022-02-17 00:03 | EDPHYS ---
Physician Documentation [facility] Name: Choco Garcia Age: 46 yrs Sex: Male : 1975 Arrival Date: 02/16/2022 Time: 20:58 Bed 23 Private MD: ED Physician Seun Collins HPI: 02/16 21:53 This 46 yrs old Male presents to ER via Ambulatory with complaints of Numbness Of Hand, kdr Numbness of Leg, Slurred Speech. 21:53 According to the patient's , when she arrived home around 5 PM she noted that his kdr speech was slurred. He had been drinking alcohol earlier in the day. Patient admits to 216 ounce. Patient has had 1 prior stroke about 2 years ago. He had residual weakness and numbness on the right side from that. Patient does not admit to any new changes in terms of the weakness or numbness on the right side. The patient stated that his slurred speech had started earlier in the day (has been going on all day). His indicated that she had seen him at 3:00 today and that his speech was normal at that time. The patient however took issue with that and stated that in fact it has been ongoing all day. We are not able to establish an exact onset of symptoms.. Onset: The symptoms/episode began/occurred today, Unable to determine exact time of onset today. Severity of symptoms: At their worst the symptoms were mild just prior to arrival, in the emergency department the symptoms are unchanged. The patient has not experienced similar symptoms in the past. The patient has not recently seen a physician. Historical: - Allergies: 22:07 No Known Allergies; jb4 - PMHx: 22:07 COPD; Hypertension; CVA; jb4 - PSHx: 22:07 None; jb4 - Immunization history:: Adult Immunizations up to date. - Social history:: Smoking status: Patient reports the use of cigarette tobacco products, smokes one pack cigarettes per day. ROS: 21:53 Constitutional: Negative for fever, chills, and weight loss, Eyes: Negative for injury, kdr pain, redness, and discharge, ENT: Negative for injury, pain, and discharge, Neck: Negative for injury, pain, and swelling, Cardiovascular: Negative for chest pain, palpitations, and edema, Respiratory: Negative for shortness of breath, cough, wheezing, and pleuritic chest pain, Abdomen/GI: Negative for abdominal pain, nausea, vomiting, diarrhea, and constipation, Back: Negative for injury and pain, : Negative for injury, bleeding, discharge, and swelling, MS/Extremity: Negative for injury and deformity, Skin: Negative for injury, rash, and discoloration, Psych: Negative for depression, anxiety, suicide ideation, homicidal ideation, and hallucinations, Allergy/Immunology: Negative for hives, rash, and allergies, Endocrine: Negative for neck swelling, polydipsia, polyuria, polyphagia, and marked weight changes, Hematologic/Lymphatic: Negative for swollen nodes, abnormal bleeding, and unusual bruising. 21:53 Neuro: Positive for numbness, speech changes, weakness, The patient has residual weakness and numbness on the right side of his body including upper and lower extremity. This is unchanged from his most state since the prior stroke. There may be changes in his speech which it is unclear exactly when that onset may have been a could have been on or before 3 PM today. Exam: 21:53 Constitutional: This is a well developed, well nourished patient who is awake, alert, kdr and in no acute distress. Head/Face: Normocephalic, atraumatic. Eyes: Pupils equal round and reactive to light, extra-ocular motions intact. Lids and lashes normal. Conjunctiva and sclera are non-icteric and not injected. Cornea within normal limits. Periorbital areas with no swelling, redness, or edema. Neck: Trachea midline, no thyromegaly or masses palpated, and no cervical lymphadenopathy. Supple, full range of motion without nuchal rigidity, or vertebral point tenderness. No Meningismus. Chest/axilla: Normal chest wall appearance and motion. Nontender with no deformity. No lesions are appreciated. Cardiovascular: Regular rate and rhythm with a normal S1 and S2. No gallops, murmurs, or rubs. Normal PMI, no JVD. No pulse deficits. Respiratory: Lungs have equal breath sounds bilaterally, clear to auscultation and percussion. No rales, rhonchi or wheezes noted. No increased work of breathing, no retractions or nasal flaring. Abdomen/GI: Soft, non-tender, with normal bowel sounds. No distension or tympany. No guarding or rebound. No evidence of tenderness throughout. Back: No spinal tenderness. No costovertebral tenderness. Full range of motion. Skin: Warm, dry with normal turgor. Normal color with no rashes, no lesions, and no evidence of cellulitis. MS/ Extremity: Pulses equal, no cyanosis. Neurovascular intact. Full, normal range of motion. Psych: Awake, alert, with orientation to person, place and time. Behavior, mood, and affect are within normal limits. 21:53 Neuro: Orientation: is normal, Mentation: is normal, Motor: Sensation: numbness, that is mild, of the right arm and right leg. Vital Signs: 21:18 Pulse 91; Pulse Ox 97% on R/A; kd3 22:00 BP 129 / 89; Pulse 84; Resp 16; Pulse Ox 98% on R/A; jb4 22:06 BP 114 / 89; Pulse 95; Resp 16; Pulse Ox 98% on R/A; jb4 22:59 BP 123 / 84; Pulse 85; Resp 16; Pulse Ox 97% on R/A; jb4 23:53 Temp 98.1; Weight 81.65 kg; mw2 02/17 00:15 BP 112 / 93; Pulse 89; Resp 16; Pulse Ox 97% on R/A; jb4 NIH Stroke Scale Scores: 02/16 21:57 NIHSS Score: 8 jb4 MDM: 21:53 Data reviewed: vital signs, nurses notes, lab test result(s), radiologic studies. kdr Counseling: I had a detailed discussion with the patient and/or guardian regarding: the historical points, exam findings, and any diagnostic results supporting the discharge/admit diagnosis, lab results, radiology results. 02/17 00:01 Patient medically screened. kdr 01:08 ED course: Had a detailed discussion with the patient and his . I explained the kdr findings several times to them with regard to the CT angiogram. Despite this explanation and the emphasis placed on neurologic evaluation, they nonetheless did to the facility and not be transferred.. 02/16 21: Order name: Basic Metabolic Panel; Complete Time: 22: bb 02/16 21: Order name: CBC with Diff; Complete Time: 22: bb 02/16 21: Order name: Protime (+inr); Complete Time: 22: bb 02/16 21:28 Order name: Ptt, Activated; Complete Time: 22:01 02/16 21:28 Order name: COVID-19 SARS RT PCR (Document "Date of Onset" if Symptomatic); Complete bb Time: 22:56 02/16 21:46 Order name: ETOH Level; Complete Time: 22:03 02/16 21:28 Order name: CT Stroke Brain w/o Contrast; Complete Time: 22:01 02/16 21:28 Order name: Stroke CXR 1 View bb 02/16 21:28 Order name: EKG; Complete Time: 21:28 bb 02/16 21:28 Order name: Accucheck; Complete Time: 21:38 bb 02/16 21:28 Order name: Cardiac monitoring; Complete Time: 21:38 bb 02/16 21:28 Order name: EKG - Nurse/Tech; Complete Time: 21:38 bb 02/16 21:50 Order name: Glucose, Ancillary Testing; Complete Time: 22:01 EDMS 02/16 22:03 Order name: CT Head Angio kdr 02/16 21:28 Order name: IV Saline Lock; Complete Time: 21:38 bb 02/16 21:28 Order name: Labs collected and sent; Complete Time: 21:38 bb 02/16 21:28 Order name: NPO; Complete Time: 21:38 02/16 21:28 Order name: O2 Per Protocol; Complete Time: 21:38 02/16 21:28 Order name: O2 Sat Monitoring; Complete Time: 21:38 02/16 21:28 Order name: Stroke Swallow Screen; Complete Time: 21:38 bb Administered Medications: No medications were administered Disposition Summary: 02/17/22 01:06 Left Against Medical Advice Location: Home kdr Problem: new(02/17/22 01:06) kdr Symptoms: have improved(02/17/22 01:06) kdr Condition: Stable(02/17/22 01:06) kdr Diagnosis - Altered mental status, unspecified kdr - Slurred speech(02/17/22 01:06) kdr - Weakness - Right sided - residual(02/17/22 01:06) kdr - Paresthesia of skin - residual from prior stroke kdr Followup: kdr - With: Private Physician - When: 2 - 3 days - Reason: If symptoms return, Further diagnostic work-up, Recheck today's complaints, Continuance of care, Re-evaluation by your physician Discharge Instructions: - Discharge Summary Sheet kdr - Weakness, [id number] kdr - Paresthesia, [id number] kdr NIH Stroke Scale - NIH Stroke Score Date: 02/16/2022 Time: 21:57 Total Score = 8 1a. Level of Consciousness (LOC) - 0(Alert) 1b. Level of Consciousness (LOC) (Month \\T\\ Age) - 0(Both) 1c. LOC Commands (Open \\T\\ Closes Eyes/Digital Librarian) - 0(Both) 2. Best Gaze (Lateral Gaze Paresis) - 1(Partial gaze palsy) 3. Visual Field Loss - 1(Partial hemianopia) 4. Facial Palsy - 2(Partial paralysis) 5a. Left Arm: Motor (10-second hold) - 0(No drift) 5b. Right Arm: Motor (10-second hold) - 0(No drift) 6a. Left Leg: Motor (5-second hold - always test supine) - 0(No drift) 6b. Right Leg: Motor (5-second hold - always test supine) - 1(Drift) 7. Limb Ataxia (finger/nose \\T\\ heel/flores - test with eyes open) - 1(Present in one limb) 8. Sensory Loss (pinprick arms/legs/face) - 1(Mild to moderate loss) 9. Best Language: Aphasia (description/naming/reading) - 1(Mild to moderate aphasia) 10. Dysarthria (speech clarity - read or repeat words) - 0(Normal) 11. Extinction and Inattention (visual/tactile/auditory/spatial/personal) - 0(No abnormality) Initials: jb4 Signatures: Dispatcher [employer] EDMS Seun Collins MD MD kdr Lisbeth Reddy RN RN Edil Raman, RN RN jb4 Lolis Graves RN RN kd3 Corrections: (The following items were deleted from the chart) 00:02 00:01 tt kdr kdr 00:02 00:01 Weakness - right upper/lower extremity kdr kdr 01:05 00:01 [facility] kdr kdr 01:05 00:01 Higher level of care kdr kdr 01:05 00:01 Fair kdr kdr 01:05 00:01 new kdr kdr 01:05 00:01 have improved kdr kdr 01:05 00:01 Slurred speech kdr kdr 01:05 00:01 Facial weakness kdr kdr 01:05 00:01 Right internal carotid narrowing kdr kdr 01:05 00:02 tt kdr kdr 01:05 00:02 Weakness - right upper/lower extremity - nonacute kdr kdr
[2022-02-17 01:29] VITALS: O2SAT 97
[2022-02-17 01:30] VITALS: TEMP 98.1
[2022-02-17 01:31] VITALS: BP 112/93
--- NOTE | 2022-02-17 08:53 | EKG ---
Test Date: 2022-02-16 Test Time: 21:39:47 Health Evaluator: REMI MEASUREMENT RESULTS: Intervals: Rate: 86 NM: 108 QRSD: 78 QT: 356 QTc: 426 [place]: P: -14 NM: 108 QRS: 61 T: 82 INTERPRETIVE STATEMENTS: Sinus rhythm with short NM Otherwise normal ECG Compared to ECG 02/11/2020 04:33:04 No significant changes Electronically Signed On 02-17-22 08:52:02 CDT by Joseph Pack
--- NOTE | 2022-02-17 13:21 | RAD REPORT ---
EXAM DESCRIPTION: CT - Head angio - 02/17/2022 6:27 am CLINICAL HISTORY: 46-year-old male with neurological deficit, acute stroke suspected. Past medical h istory of stroke, two years prior. COMPARISON: No prior imaging is available for comparison. TECHNIQUE: CT angiography of the head following dynamic bolus of intravenous contrast. 3D reformatte d reconstructions were performed on an independent workstation. This exam was performed according to our departmental dose optimization program which includes use of automated exposure control, adjustme nt of the mA and/or kV according to patient size and/or use of iterative reconstruction technique. FINDINGS: CTA brain: Multisegmental focal areas of transcortical hypoattenuation identified at the level of the posterior RIGHT frontal and parietal lobes suggesting sequela of age-indeterminate, subacute to chronic appeari ng infarction. No prior imaging is available for comparison. Severe narrowing of the C2 segment LEFT internal carotid artery with thin sliver of opacification pre sent through the skull base through the petrous temporal portion raising the concern for dissection. Mild to moderate atherosclerotic calcification of the bilateral cavernous carotid arteries with mild to moderate narrowing on the RIGHT and moderate to severe narrowing of the LEFT internal carotid yissel ry at the level of the supraclinoid internal carotid artery and carotid terminus. Multisegmental mild narrowing of the bilateral middle cerebral arteries suspected secondary to athero matous change. Patent flow opacification through anterior circulation (RIGHT petrous/cavernous/supraclinoid internal carotid arteries, anterior and middle cerebral arteries), posterior circulation (vertebral-basilar, posterior-inferior cerebellar, anterior-inferior cerebellar, superior cerebellar, and posterior cereb ral arteries), and distal intracranial vasculature. Patent flow opacification through a complete [id number] with a patent anterior communicating ar trupti and bilateral posterior communicating arteries. Normal superficial and deep intracranial venous drainage. No evidence of occlusive thrombus, or vascular malformation. Additional findings include moderate to severe mucosal thickening of the RIGHT maxillary sinus. IMPRESSION: 1. Severe narrowing of the C2 segment LEFT internal carotid artery with thin sliver of opacification present through the skull base through the petrous temporal portion raising the concer n for dissection. 2. Mild to moderate atherosclerotic calcification of the bilateral cavernous carotid arteries with mild to moderate narrowing on the RIGHT and moderate to severe narrowing of the LEFT internal carotid artery at the level of the supraclinoid internal carotid artery and carotid terminus. 3. Multisegmental mild narrowing of the bilateral middle cerebral arteries suspected secondary to a theromatous change. 4. Multisegmental focal areas of transcortical hypoattenuation identified at the level of the poste rior RIGHT frontal and parietal lobes suggesting sequela of age-indeterminate, subacute to chronic ap pearing infarction. No clearly acute cortical or territorial infarction is identified, however prior imaging is available for comparison. Further evaluation with MRI is recommended. Findings were discussed with Dr. Collins 02/16/2022 2323 hours. Electronically signed by: Kathe Felipe MD 02/16/2022 11:26 PM CDT Due to temporary technical issues with the PACS/Fluency reporting system, reports are being signed by the in house radiologists without. review as a courtesy to insure prompt reporting. The interpreting radiologist is fully responsible for the content of the report
--- NOTE | 2022-02-17 13:23 | RAD REPORT ---
EXAM DESCRIPTION: RAD - Chest Single View - 02/16/2022 10:37 pm CLINICAL HISTORY: 46-year-old male with stroke. TECHNIQUE: Single view, AP portable chest was obtained. COMPARISON: None. FINDINGS: Unremarkable cardiac and mediastinal silhouette. Heart size is normal. Lungs are clear without focal opacity, pneumothorax or pleural effusions. The visualized bones are within normal limits. IMPRESSION: No acute cardiopulmonary abnormalities. Electronically signed by: Kathe Felipe MD 02/16/2022 11:26 PM CDT Due to temporary technical issues with the PACS/Fluency reporting system, reports are being signed by the in house radiologists without. review as a courtesy to insure prompt reporting. The interpreting radiologist is fully responsible for the content of the report
== END 2022-02-17 01:10 | disposition left against medical advice (07) ==
LOC: ER 20:53
DX: R41.82 Altered mental status, unspecified (principal); R47.81 Slurred speech; R20.2 Paresthesia of skin; I69.351 Hemiplegia and hemiparesis following cerebral infarction affecting right dominant side; I10 Essential (primary) hypertension; J44.9 Chronic obstructive pulmonary disease, unspecified; F17.210 Nicotine dependence, cigarettes, uncomplicated; Z20.822 Contact with and (suspected) exposure to COVID-19
CPT/HCPCS: 36415; 70450; 70496; 71045; 80048; 80320; 82947; 85025; 85610; 85730; 93005; Q9967; U0003

== ENCOUNTER 2022-03-29 16:22 | Emergency (ER) | payer SELFPAY ==
--- OUTSIDE RECORDS SUMMARY | 2022-03-29 16:25 | XMS REPORT | Continuity of Care Document ---
:1975 Author Organization [facility] t Address [address] [place] [address] Care Team Providers Name Role Phone SON FERGUSON Attending Clinician Unavailable GLORIA KEITH Attending Clinician Unavailable ANA PERALTA Attending Clinician Unavailable GLORIA KEITH Admitting Clinician Unavailable KARLIE SERRANO Admitting Clinician Unavailable Problems This patient has no known problems. Allergies, Adverse Reactions, Alerts Allergy Allergy Status Severity Reaction(s) Onset Inactive Treating Comm ents Source Name Type Date Date Clinician NO KNOWN Allergy Active [facility] Medications This patient has no known medications. Vital Signs Vital Name Observation Time Observation Value Comments Source WEIGHT 2022-02-17 17:36:00 83.28 kg HEIGHT 2022-02-17 03:48:00 172.7 cm WEIGHT 2022-02-17 03:48:00 81.647 kg WEIGHT 2022-02-17 17:36:00 83.28 kg HEIGHT 2022-02-17 03:48:00 172.7 cm WEIGHT 2022-02-17 03:48:00 81.647 kg Procedures This patient has no known procedures. Encounters Start End Encounter Admission Attending Care Care Encounter Source Date/Time Date/Time Type Type Clinicians Facility Department ID 2022-03-30 2022-03-30 Outpatient TREY COSBY [id number] [facility] 00:00:00 00:00:00 SON 2022-03-04 2022-03-04 Outpatient TREY FERGUSON [id number] [facility] 00:00:00 00:00:00 SON 2022-03-04 2022-03-04 Outpatient TREY COSBY [facility] [id number] [facility] 00:00:00 00:00:00 SON 2022-02-17 2022-02-19 Inpatient ER GLORIA KEITH [facility] Emergency [id number] [facility] 04:58:00 10:55:00 Results Test Description Test Time Test Comments Results Result Sourc e Comments MR, MRA, NECK, 2022-02-19 Unlisted Reason WITHOUT IV 04:45:00 for Exam - CONTRAST Click Yes and Enter Reason [facility] - Below->Yes [facility]: Unlisted Reason ANA MARIA LANGLEY GABRIELA for Exam->TIA : 1975 Sex: workup M *FINAL REPORT EXAM/TECHNIQUE: MRI of the brain without contrast. MR angiography of the head and neck without IV contrast with 3-D reconstructions. Multiplanar multisequence images were acquired. INDICATION: Stroke. COMPARISON: Outside hospital CTA from 02/16/2022 FINDINGS: Sizable territorial area of DWI hyperintensity with corresponding ADC hypointensity and T2/FLAIR hyperintensity affecting the left posterior MCA watershed, consistent with acute infarct. There is a remote infarct involving the left parietal lobe adjacent to the acute infarct. No abnormal susceptibility artifact. Ventricles are normal. Basal cisterns are patent. No midline shift. No tonsillar ectopia. Midline structures are unremarkable. Visualized face and upper neck are unremarkable. There is focal loss of focal flow void at the left petrous ICA segment. Orbits are normal. Right maxillary sinus mucosal thickening. Right mastoid effusion. Visualized nasopharynx is normal. No suspicious osseous lesion. MR ANGIOGRAPHY OF THE HEAD AND NECK, EMPLOYING USE OF 3D RECONSTRUCTIONS. HEAD: There is a focal high-grade narrowing of the left internal carotid artery at its horizontal and vertical petrous segments with reconstitution at its cavernous segment. The bilateral M1 and M2 segments of the MCAs are patent. The bilateral A1 and A2 segments of the ACAs are patent. The anterior communicating artery is patent. The right V4 segment of the vertebral artery is severely hypoplastic. The left PICA is patent. The right PICA is not visualized. The basilar artery is patent. The AICAs are patent. The SCAs are patent. The P1 and P2 segments of the PAPER REWINDER OPERATOR are patent. Unremarkable appearance of the posterior communicating arteries. No visible aneurysm. NECK: The bilateral common carotid arteries are patent. There is no stenosis at the carotid bifurcation by NASCET criteria. The cervical internal carotid arteries are patent. Large dominant left vertebral artery with tiny right vertebral artery, not well evaluated. No abnormal structure is visualized on limited evaluation of the neck. Impression: 1.Left posterior MCA territory and MCA watershed acute infarcts with few hours to a few days in age. 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 This grossly appears unchanged relative to CTA from outside hospital from 02/16/2022.2.Remote left posterior MCA infarct adjacent to acute infarct.3.Diminutive right vertebral artery is not well evaluated. Left vertebral artery is dominant and prominent. Critical findings were relayed to neurology at 02/18/2022 11:10 PM. Signed: Titi Angel MDReport Verified Date/Time: 02/19/2022 04:45:56 , BRAIN, WITHOUT 2022-02-18 Unlisted Reason CONTRAST 23:11:00 for Exam - Click Yes and Enter Reason [facility] - Below->No [facility]: ANA MARIA LANGLEY : 1975 Sex: M *FINAL REPORT EXAM/TECHNIQUE: MRI of the brain without contrast. MR angiography of the head and neck without IV contrast with 3-D reconstructions. Multiplanar multisequence images were acquired. INDICATION: Stroke. COMPARISON: Outside hospital CTA from 02/16/2022 FINDINGS: Sizable territorial area of DWI hyperintensity with corresponding ADC hypointensity and T2/FLAIR hyperintensity affecting the left posterior MCA watershed, consistent with acute infarct. There is a remote infarct involving the left parietal lobe adjacent to the acute infarct. No abnormal susceptibility artifact. Ventricles are normal. Basal cisterns are patent. No midline shift. No tonsillar ectopia. Midline structures are unremarkable. Visualized face and upper neck are unremarkable. There is focal loss of focal flow void at the left petrous ICA segment. Orbits are normal. Right maxillary sinus mucosal thickening. Right mastoid effusion. Visualized nasopharynx is normal. No suspicious osseous lesion. MR ANGIOGRAPHY OF THE HEAD AND NECK, EMPLOYING USE OF 3D RECONSTRUCTIONS. HEAD: There is a focal high-grade narrowing of the left internal carotid artery at its horizontal and vertical petrous segments with reconstitution at its cavernous segment. The bilateral M1 and M2 segments of the MCAs are patent. The bilateral A1 and A2 segments of the ACAs are patent. The anterior communicating artery is patent. The right V4 segment of the vertebral artery is severely hypoplastic. The left PICA is patent. The right PICA is not visualized. The basilar artery is patent. The AICAs are patent. The SCAs are patent. The P1 and P2 segments of the PAPER REWINDER OPERATOR are patent. Unremarkable appearance of the posterior communicating arteries. No visible aneurysm. NECK: The bilateral common carotid arteries are patent. There is no stenosis at the carotid bifurcation by NASCET criteria. The cervical internal carotid arteries are patent. Large dominant left vertebral artery with tiny right vertebral artery, not well evaluated. No abnormal structure is visualized on limited evaluation of the neck. Impression: 1.Left posterior MCA territory and MCA watershed acute infarcts with few hours to a few days in age. 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 This grossly appears unchanged relative to CTA from outside hospital from 02/16/2022.2.Remote left posterior MCA infarct adjacent to acute infarct.3.Diminutive right vertebral artery is not well evaluated. Left vertebral artery is dominant and prominent. Critical findings were relayed to neurology at 02/18/2022 11:10 PM. Signed: Titi Angel MDReport Verified Date/Time: 02/18/2022 23:11:41 , MRA, BRAIN, 2022-02-18 Unlisted Reason WITHOUT CONTRAST 23:11:00 for Exam - Click Yes and Enter Reason [facility] - Below->Yes [facility]: Unlisted Reason ANA MARIA LANGLEY for : 1975 Sex: Exam->suspected M TIA vs acute CVA *FINAL REPORT EXAM/TECHNIQUE: MRI of the brain without contrast. MR angiography of the head and neck without IV contrast with 3-D reconstructions. Multiplanar multisequence images were acquired. INDICATION: Stroke. COMPARISON: Outside hospital CTA from 02/16/2022 FINDINGS: Sizable territorial area of DWI hyperintensity with corresponding ADC hypointensity and T2/FLAIR hyperintensity affecting the left posterior MCA watershed, consistent with acute infarct. There is a remote infarct involving the left parietal lobe adjacent to the acute infarct. No abnormal susceptibility artifact. Ventricles are normal. Basal cisterns are patent. No midline shift. No tonsillar ectopia. Midline structures are unremarkable. Visualized face and upper neck are unremarkable. There is focal loss of focal flow void at the left petrous ICA segment. Orbits are normal. Right maxillary sinus mucosal thickening. Right mastoid effusion. Visualized nasopharynx is normal. No suspicious osseous lesion. MR ANGIOGRAPHY OF THE HEAD AND NECK, EMPLOYING USE OF 3D RECONSTRUCTIONS. HEAD: There is a focal high-grade narrowing of the left internal carotid artery at its horizontal and vertical petrous segments with reconstitution at its cavernous segment. The bilateral M1 and M2 segments of the MCAs are patent. The bilateral A1 and A2 segments of the ACAs are patent. The anterior communicating artery is patent. The right V4 segment of the vertebral artery is severely hypoplastic. The left PICA is patent. The right PICA is not visualized. The basilar artery is patent. The AICAs are patent. The SCAs are patent. The P1 and P2 segments of the PAPER REWINDER OPERATOR are patent. Unremarkable appearance of the posterior communicating arteries. No visible aneurysm. NECK: The bilateral common carotid arteries are patent. There is no stenosis at the carotid bifurcation by NASCET criteria. The cervical internal carotid arteries are patent. Large dominant left vertebral artery with tiny right vertebral artery, not well evaluated. No abnormal structure is visualized on limited evaluation of the neck. Impression: 1.Left posterior MCA territory and MCA watershed acute infarcts with few hours to a few days in age. 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 This grossly appears unchanged relative to CTA from outside hospital from 02/16/2022.2.Remote left posterior MCA infarct adjacent to acute infarct.3.Diminutive right vertebral artery is not well evaluated. Left vertebral artery is dominant and prominent. Critical findings were relayed to neurology at 02/18/2022 11:10 PM. Signed: Titi Angel MDReport Verified Date/Time: 02/18/2022 23:11:41 GLOBIN A1C 2022-02-18 12:08:41 Test Item Value Reference Range Interpretation Comme nts HEMOGLOBIN A1C ELECTROPHORESIS 5.1 % See_Comment [Automated message] The system (Hipui) (test code = 3811) which generated this result transmitted ref erence range: <=5.6%. The ref erence range was not used to int erpret this result as normal/abnor mal. "The A1c is measured using a NGSP-certified method. HbA1c value equal to or greater than 6.5% as thediagnosis cutoff for diabetes. An HbA1c value of 5.7- 6.4% indicates increased risk for diabetes (prediabetes)."Retreader ID - ADMBASIC METABOLIC [id number] 06:45:31 Test Item Value Reference Range Interpretation Comments SODIUM (BEAKER) 138 meq/L 136-145 (test code = 381) POTASSIUM (BEAKER) 4.3 meq/L 3.5-5.1 (test code = 379) CHLORIDE (BEAKER) 106 meq/L 98-107 (test code = 382) CO2 (BEAKER) (test 24 meq/L 22-29 code = 355) BLOOD UREA NITROGEN 13 mg/dL 7-21 (BEAKER) (test code = 354) CREATININE (BEAKER) 0.91 mg/dL 0.57-1.25 (test code = 358) GLUCOSE RANDOM 112 mg/dL 70-105 H (BEAKER) (test code = 652) CALCIUM (BEAKER) 9.3 mg/dL 8.4-10.2 (test code = 697) EGFR (BEAKER) (test 89 mL/min/1.73 ESTIMA DANIA GFR IS code = 1092) sq m NOT ACCURATE CREATININE CLEARANCE IN PREDICTING GLOMERULAR FILTRATION RATE . ESTIMATED GFR I S NOT APPLICABLE FOR DIALYSIS PATIEN TS. Retreader ID - PIAYA LCBC W/PLT COUNT & AUTO [id number] 06:20:42 Test Item Value Reference Range Interpretation Comments WHITE BLOOD CELL COUNT (BEAKER) 7.5 K/ L 3.5-10.5 (test code = 775) RED BLOOD CELL COUNT (BEAKER) 4.86 M/ L 4.63-6.08 (test code = 761) HEMOGLOBIN (BEAKER) (test code = 15.3 GM/DL 13.7-17.5 410) HEMATOCRIT (BEAKER) (test code = 44.5 % 40.1-51.0 411) MEAN CORPUSCULAR VOLUME (BEAKER) 91.6 fL 79.0-92.2 (test code = 753) MEAN CORPUSCULAR HEMOGLOBIN 31.5 pg 25.7-32.2 (BEAKER) (test code = 751) MEAN CORPUSCULAR HEMOGLOBIN CONC 34.4 GM/DL 32.3-36.5 (BEAKER) (test code = 752) RED CELL DISTRIBUTION WIDTH 12.9 % 11.6-14.4 (BEAKER) (test code = 412) PLATELET COUNT (BEAKER) (test 199 K/CU MM 150-450 code = 756) MEAN PLATELET VOLUME (BEAKER) 10.3 fL 9.4-12.4 (test code = 754) NUCLEATED RED BLOOD CELLS 0 /100 WBC 0-0 (BEAKER) (test code = 413) NEUTROPHILS RELATIVE PERCENT 63 % (BEAKER) (test code = 429) LYMPHOCYTES RELATIVE PERCENT 25 % (BEAKER) (test code = 430) MONOCYTES RELATIVE PERCENT 9 % (BEAKER) (test code = 431) EOSINOPHILS RELATIVE PERCENT 2 % (BEAKER) (test code = 432) BASOPHILS RELATIVE PERCENT 1 % (BEAKER) (test code = 437) NEUTROPHILS ABSOLUTE COUNT 4.71 K/ L 1.78-5.38 (BEAKER) (test code = 670) LYMPHOCYTES ABSOLUTE COUNT 1.83 K/ L 1.32-3.57 (BEAKER) (test code = 414) MONOCYTES ABSOLUTE COUNT (BEAKER) 0.67 K/ L 0.30-0.82 (test code = 415) EOSINOPHILS ABSOLUTE COUNT 0.15 K/ L 0.04-0.54 (BEAKER) (test code = 416) BASOPHILS ABSOLUTE COUNT (BEAKER) 0.06 K/ L 0.01-0.08 (test code = 417) IMMATURE GRANULOCYTES-RELATIVE 1 % 0-1 PERCENT (BEAKER) (test code = 2801) [id number] 12:55:29 Test Item Value Reference Range Interpretation Comments RPR SCREEN (BEAKER) (test code = Nonreactive Nonreactive 420) HEMOGLOBIN [id number] 09:46:07 Test Item Value Reference Range Interpretation Comments HEMOGLOBIN A1C 5.1 % See_Comment [Automated m essage] ELECTROPHORESIS (BEAKER) The system which (test code = 3811) generated this result transmitted ref erence range: <=5.6%. The reference range was not used to int erpret this result as normal/abnormal . "The A1c is measured using a NGSP-certified method. HbA1c value equal to or greater than 6.5% as thediagnosis cutoff for diabetes. An HbA1c value of 5.7- 6.4% indicates increased risk for diabetes (prediabetes)."Retreader ID - ADMOperator ID - ADMVITAMIN [id number] 06:55:26 Test Item Value Reference Range Interpretation Comments VITAMIN B12 (LYNN) (test code = 281 pg/mL 213-355 864) Retreader ID - BURAK LTSH/FREE T4 IF [id number] 06:55:26 Test Item Value Reference Range Interpretation Comments THYROID STIMULATING HORMONE 2.347 uIU/mL 0.350-4.940 (LYNN) (test code = 772) Retreader ID - PIMICHAEL LSARS-COV2/RT-PCR ([facility])2022-02-17 06:54:25 Test Item Value Reference Range Interpretation Comments SARS-COV2/RT-PCR Negative Negative The SARS-Co V-2 target (test code = nucleic acids a re not [id number]) detected in thi s specimen. Negative result s do not preclude SARS-C oV-2 infection and s hould not be used as the gracie e basis for patient managem ent decisions. Nega tive results must be combine d with clinical observ ations, patient history , and epidemiological information. A false negativ e result may occur if a spec imen is improperly mikhail ected, transported or handled. This SARS CoV-2 test is a rapid, real-time RT-PC R test intended for th e qualitative detection of nu cleic acid from SARS-CoV-2 in a nasopharyngeal swab specimen collected from individuals suspected of CO VID-19 by their healthcar e provider. This test has been authorized by FDA under an EUA for use by authorized laboratories. This test is only authorized for the duration of the declaration that circumstances exist justifying the authorization of emergency use of in vitro diagnostic tests for detection and/or diagnosis of COVID-19 under Section 564(b)(1) of the Federal Food, Drug and Cosmetic Act, 21 U.S.C. 360bbb-3(b)(1), unless the authorization is terminated or revoked sooner. Fact Sheet for Healthcare Providers: https://www.[employer] m/Documents/Xpert%20Xpress%20SARS%20CoV-2/Fact%20Sheets/302-9024%48HZQK-JCX-1%20 HEALTHCARE%20PROVIDERS%20FACT%20SHEET.pdf Fact Sheet for Healthcare Patients: https://www.[employer]/Documents/Xpert%20Xp ress%20SARS%20CoV-2/Fact%20Sheets/302-3801%35JKAC-YCY-4%20PATIENT%20FACT%20SHEET .pdfHEPATIC FUNCTION [id number] 06:27:15 Test Item Value Reference Range Interpretation Comments TOTAL PROTEIN (BEAKER) (test code = 7.6 gm/dL 6.0-8.3 770) ALBUMIN (BEAKER) (test code = 1145) 4.4 g/dL 3.5-5.0 BILIRUBIN TOTAL (BEAKER) (test code 0.4 mg/dL 0.2-1.2 = 377) BILIRUBIN DIRECT (BEAKER) (test 0.2 mg/dL 0.1-0.5 code = 706) ALKALINE PHOSPHATASE (BEAKER) (test 73 U/L 40-150 code = 346) AST (SGOT) (BEAKER) (test code = 27 U/L 5-34 353) ALT (SGPT) (BEAKER) (test code = 28 U/L 6-55 347) Retreader ID - BURAK LLIPID [id number] 06:27:15 Test Item Value Reference Range Interpretation Comments TRIGLYCERIDES (BEAKER) (test code = 227 mg/dL 540) CHOLESTEROL (BEAKER) (test code = 150 mg/dL 631) HDL CHOLESTEROL (BEAKER) (test code 40 mg/dL = 976) LDL CHOLESTEROL CALCULATED (BEAKER) 65 mg/dL (test code = 633) Triglyceride Reference Range: Low Risk <150 Borderline 150-199 High Risk 200- 499 Very High Risk >=500Cholesterol Reference Range: Low Risk <200 Borderline 200-239 High Risk >240HDL Cholesterol Reference Range: Low Risk >=60 High Risk <40LDL Cholesterol Reference Range: Optimal <100 Near Optimal 100-129 Borderline 130-159 High 160-189 Very High >=190 Retreader ID - PIAYA LBASIC METABOLIC [id number] 06:13:48 Test Item Value Reference Range Interpretation Comments SODIUM (BEAKER) 139 meq/L 136-145 (test code = 381) POTASSIUM (BEAKER) 4.2 meq/L 3.5-5.1 (test code = 379) CHLORIDE (BEAKER) 101 meq/L 98-107 (test code = 382) CO2 (BEAKER) (test 27 meq/L 22-29 code = 355) BLOOD UREA NITROGEN 12 mg/dL 7-21 (BEAKER) (test code = 354) CREATININE (BEAKER) 1.06 mg/dL 0.57-1.25 (test code = 358) GLUCOSE RANDOM 93 mg/dL 70-105 (BEAKER) (test code = 652) CALCIUM (BEAKER) 9.9 mg/dL 8.4-10.2 (test code = 697) EGFR (BEAKER) (test 75 mL/min/1.73 ESTIMA DANIA GFR IS code = 1092) sq m NOT ACCURATE CREATININE CLEARANCE IN PREDICTING GLOMERULAR FILTRATION RATE . ESTIMATED GFR I S NOT APPLICABLE FOR DIALYSIS PATIEN TS. Retreader ID - PIAYA [id number] 06:07:08 Test Item Value Reference Range Interpretation Comments PROTIME (BEAKER) (test 12.4 seconds 11.9-14.2 code = 759) INR (BEAKER) (test 0.94 See_Comment [Automat ed code = 370) message] The sy stem which generated this result transmitted reference range : <=5.90. The reference range was not used to interpret this result as normal/abnormal . PARTIAL THROMBOPLASTIN 24.9 seconds 22.5-36.0 TIME (BEAKER) (test code = 760) RECOMMENDED COUMADIN/WARFARIN INR THERAPY RANGESSTANDARD DOSE: 2.0 - 3.0 Includes: PROPHYLAXIS for venous thrombosis, systemic embolization; TREATMENT for venous thrombosis and/or pulmonary embolus.HIGH RISK: Target INR is 2.5-3.5 for patients with mechanical heart valves.CBC W/PLT COUNT & AUTO [id number] 05:53:40 Test Item Value Reference Range Interpretation Comments WHITE BLOOD CELL COUNT (BEAKER) 8.6 K/ L 3.5-10.5 (test code = 775) RED BLOOD CELL COUNT (BEAKER) 5.05 M/ L 4.63-6.08 (test code = 761) HEMOGLOBIN (BEAKER) (test code = 15.7 GM/DL 13.7-17.5 410) HEMATOCRIT (BEAKER) (test code = 47.1 % 40.1-51.0 411) MEAN CORPUSCULAR VOLUME (BEAKER) 93.3 fL 79.0-92.2 H (test code = 753) MEAN CORPUSCULAR HEMOGLOBIN 31.1 pg 25.7-32.2 (BEAKER) (test code = 751) MEAN CORPUSCULAR HEMOGLOBIN CONC 33.3 GM/DL 32.3-36.5 (BEAKER) (test code = 752) RED CELL DISTRIBUTION WIDTH 13.2 % 11.6-14.4 (BEAKER) (test code = 412) PLATELET COUNT (BEAKER) (test 272 K/CU MM 150-450 code = 756) MEAN PLATELET VOLUME (BEAKER) 10.0 fL 9.4-12.4 (test code = 754) NUCLEATED RED BLOOD CELLS 0 /100 WBC 0-0 (BEAKER) (test code = 413) NEUTROPHILS RELATIVE PERCENT 63 % (BEAKER) (test code = 429) LYMPHOCYTES RELATIVE PERCENT 25 % (BEAKER) (test code = 430) MONOCYTES RELATIVE PERCENT 9 % (BEAKER) (test code = 431) EOSINOPHILS RELATIVE PERCENT 2 % (BEAKER) (test code = 432) BASOPHILS RELATIVE PERCENT 1 % (BEAKER) (test code = 437) NEUTROPHILS ABSOLUTE COUNT 5.43 K/ L 1.78-5.38 H (BEAKER) (test code = 670) LYMPHOCYTES ABSOLUTE COUNT 2.13 K/ L 1.32-3.57 (BEAKER) (test code = 414) MONOCYTES ABSOLUTE COUNT (BEAKER) 0.75 K/ L 0.30-0.82 (test code = 415) EOSINOPHILS ABSOLUTE COUNT 0.16 K/ L 0.04-0.54 (BEAKER) (test code = 416) BASOPHILS ABSOLUTE COUNT (BEAKER) 0.09 K/ L 0.01-0.08 H (test code = 417) IMMATURE GRANULOCYTES-RELATIVE 1 % 0-1 PERCENT (BEAKER) (test code = 2801) CBC W/AUTO DIFF WITH [id number] 08:41:23 Test Item Value Reference Range Interpretation Comments WBC (test code = 7.5 K/UL 3.5-11.0 1001) RBC (test code = 5.55 M/UL 4.50-6.10 1002) HEMOGLOBIN (test code 16.8 G/DL 13.5-17.0 = 1003) HEMATOCRIT (test code 49.2 % 40.0-51.0 = 1004) MCV (test code = 88.6 fL 80.0-99.0 1005) MCH (test code = 30.3 PG 25.0-33.0 1006) MCHC (test code = 34.1 G/DL 31.0-36.0 1007) RDW (test code = 13.0 % 11.5-15.0 1038) NEUTROPHILS (test 65.1 % code = 1008) LYMPHOCYTES (test 22.4 % code = 1010) MONOCYTES (test code 8.9 % = 1011) EOSINOPHILS (test 1.3 % code = 1012) BASOPHILS (test code 1.1 % = 1013) IMMATURE GRANULOCYTES 1.2 % (test code = 1036) NUCLEATED RBCS (test 0.0 /100 WBC'S See_Comment [Aut omated code = 1065) message] The sy stem which generated this result transmitted reference range : 0.0. The refere nce range was not u sed to interpret th is result as normal/abnormal . PLATELET COUNT (test 378 K/UL 130-400 code = 1015) ABSOLUTE NEUTROPHILS 4.91 K/UL 1.50-7.50 (test code = 1066) ABSOLUTE LYMPHOCYTES 1.69 K/UL 1.00-4.00 (test code = 1067) ABSOLUTE MONOCYTES 0.67 K/UL 0.20-1.00 (test code = 1068) ABSOLUTE EOSINOPHILS 0.10 K/UL 0.00-0.50 (test code = 1040) ABSOLUTE BASOPHILS 0.08 K/UL 0.00-0.20 (test code = 1069) ABS IMMATURE 0.09 K/UL 0.00-0.10 GRANULOCYTES (test code = 1020) ABS NUCLEATED RBCS 0.00 K/UL 0.00-0.11 (test code = 35845) LIPID [id number] 06:18:48 Test Item Value Reference Range Interpretation [...] MOREINFORMATION , SEE CLIENT ANNOUNCE MENT AT [email or web address] /CalcLDL-C RISK RATIO LDL/HDL 1.79 RATIO <3.55 (test code = 2238) COMPREHENSIVE METABOLIC [id number] 06:18:48 Test Item Value Reference Range Interpretation Comments GLUCOSE (test code = 103 MG/DL 70-99 H 2216) BUN (test code = 10 MG/DL 6-20 2207) CREATININE (test 0.85 MG/DL 0.80-1.40 code = 2214) eGFR (2020 CKD-EPI) 107 >60 (test code = 58434) ML/MIN/1.73 CALC BUN/CREAT (test 12 RATIO 6-28 code = 2235) SODIUM (test code = 137 MEQ/L 380-763 4142) POTASSIUM (test code 4.9 MEQ/L 3.5-5.4 = 2227) CHLORIDE (test code 102 MEQ/L 95-107 = 2215) CARBON DIOXIDE (test 21 MEQ/L 19-31 code = 2206) CALCIUM (test code = 9.7 MG/DL 8.5-10.5 2208) PROTEIN, TOTAL (test 7.1 G/DL 6.1-8.3 code = 2229) ALBUMIN (test code = 4.2 G/DL 3.5-5.2 2200) CALC GLOBULIN (test 2.9 G/DL 1.9-3.7 code = 2240) CALC A/G RATIO (test 1.4 RATIO 1.0-2.6 code = 2234) BILIRUBIN, TOTAL 0.2 MG/DL See_Comment [Automated message] (test code = 2207) The syste m which generated this result transmitted ref erence range: <=1.2. T he reference range was not used to int erpret this result as normal/abnormal . ALKALINE PHOSPHATASE 90 U/L 40-118 (test code = 2204) AST (test code = 20 U/L 9-50 2217) ALT (test code = 18 U/L 5-50 UNLESS OTH ERWISE 2218) INDICATED, ALL TESTING PERFORM [facility] [place] [address] [place] [address] FELIPA HARRIS DIRECTOR: JAMA GODDARD M.D. [place] NUMBER [id number] CAP ACCREDITATION N O. [id number]
[2022-03-29] MEDS ORDERED: HYDROCODONE/APAP 10/325 TAB ONE (17:46)
[2022-03-29] MEDS ORDERED: LIDOCAINE 1% MPF 5 ML VIAL ONE (17:46)
[2022-03-29] MEDS ORDERED: TETANUS & DIPHTHERIA TOX,ADULT 0.5 ML VIAL ONE (17:47)
--- NOTE | 2022-03-29 18:14 | EDPHYS ---
Physician Documentation [facility] Name: Choco Garcia Age: 46 yrs Sex: Male : 1975 Arrival Date: 03/29/2022 Time: 16:23 Bed 17 Private MD: ED Physician Jeff Wright HPI: 03/29 17:35 This 46 yrs old Male presents to ER via Ambulatory with complaints of spider bite, snw Abscess. 17:35 The patient presents with an abscess of the left calf. Description: The affected area snw is moderate sized, localized, erythematous, swollen, warm. Onset: The symptoms/episode began/occurred 2 week(s) ago, and became persistent. Associated signs and symptoms: Pertinent positives: erythema, swelling. Severity of symptoms: At their worst the symptoms were moderate. It is unknown whether or not the patient has had similar symptoms in the past. It is unknown whether or not the patient has recently seen a physician. Historical: - Allergies: 17:07 No Known Allergies; iw - Home Meds: 17:07 Plavix 75 mg Oral tab 1 tab once daily [Active]; aspirin 81 mg Oral cap 1 cap once iw daily [Active]; lisinopril Oral [Active]; - PMHx: 17:07 COPD; CVA; Hypertension; Hypercholesterolemia; iw - PSHx: 17:07 None; iw - Immunization history:: Adult Immunizations up to date, Last tetanus immunization: unknown. - Social history:: Smoking status: Patient reports the use of cigarette tobacco products, smokes one-half pack cigarettes per day. ROS: 17:34 Constitutional: Negative for fever, chills, and weight loss, Eyes: Negative for injury, snw pain, redness, and discharge, ENT: Negative for injury, pain, and discharge, Neck: Negative for injury, pain, and swelling, Cardiovascular: Negative for chest pain, palpitations, and edema, Respiratory: Negative for shortness of breath, cough, wheezing, and pleuritic chest pain, Abdomen/GI: Negative for abdominal pain, nausea, vomiting, diarrhea, and constipation, Back: Negative for injury and pain, : Negative for injury, bleeding, discharge, and swelling, MS/Extremity: Negative for injury and deformity, Neuro: Negative for headache, weakness, numbness, tingling, and seizure, Psych: Negative for depression, anxiety, suicide ideation, homicidal ideation, and hallucinations. 17:34 Skin: Positive for abscess, pustules, swelling, of the left calf. Exam: 17:33 Head/Face: Normocephalic, atraumatic. Eyes: Pupils equal round and reactive to light, snw extra-ocular motions intact. Lids and lashes normal. Conjunctiva and sclera are non-icteric and not injected. Cornea within normal limits. Periorbital areas with no swelling, redness, or edema. ENT: Nares patent. No nasal discharge, no septal abnormalities noted. Tympanic membranes are normal and external auditory canals are clear. Oropharynx with no redness, swelling, or masses, exudates, or evidence of obstruction, uvula midline. Mucous membranes moist. Neck: Trachea midline, no thyromegaly or masses palpated, and no cervical lymphadenopathy. Supple, full range of motion without nuchal rigidity, or vertebral point tenderness. No Meningismus. Chest/axilla: Normal chest wall appearance and motion. Nontender with no deformity. No lesions are appreciated. Cardiovascular: Regular rate and rhythm with a normal S1 and S2. No gallops, murmurs, or rubs. Normal PMI, no JVD. No pulse deficits. Respiratory: Lungs have equal breath sounds bilaterally, clear to auscultation and percussion. No rales, rhonchi or wheezes noted. No increased work of breathing, no retractions or nasal flaring. Abdomen/GI: Soft, non-tender, with normal bowel sounds. No distension or tympany. No guarding or rebound. No evidence of tenderness throughout. Back: No spinal tenderness. No costovertebral tenderness. Full range of motion. MS/ Extremity: Pulses equal, no cyanosis. Neurovascular intact. Full, normal range of motion. Neuro: Awake and alert, GCS 15, oriented to person, place, time, and situation. Cranial nerves II-XII grossly intact. Motor strength 5/5 in all extremities. Sensory grossly intact. Cerebellar exam normal. Normal gait. Psych: Awake, alert, with orientation to person, place and time. Behavior, mood, and affect are within normal limits. 17:33 Constitutional: The patient appears awake, anxious. 17:33 Skin: Appearance: normal except for affected area, abscess, that is moderate sized, of the left calf, with surrounding cellulitis, that is mild. Vital Signs: 17:05 Resp 16; Temp 98.1; Pulse Ox 98% on R/A; Weight 71.67 kg; Height 5 ft. 8 in. (172.72 iw cm); Pain 10/10; 17:32 BP 112 / 83; Pulse 97; ll1 18:20 BP 110 / 87; Pulse 95; Resp 17; Pulse Ox 98% ; ll1 17:05 Body Mass Index 24.02 (71.67 kg, 172.72 cm) iw Procedures: 18:12 I \T\ D: Incision and drainage was performed for an abscess of the left Prepped with snw Betadine, Anesthetized with 5 ml's 1% Lidocaine. Incised with #11 blade. Drained moderate amount purulent fluid. serosanguinous fluid. Dressing: sterile 4x4 gauze, the patient tolerated the procedure well, broke up loculations and flushed inside with lidocaine. MDM: 17:28 Patient medically screened. snw 17:36 Data reviewed: vital signs, nurses notes. Counseling: I had a detailed discussion with snw the patient and/or guardian regarding: the historical points, exam findings, and any diagnostic results supporting the discharge/admit diagnosis, the need for outpatient follow up, for definitive care, to return to the emergency department if symptoms worsen or persist or if there are any questions or concerns that arise at home. Response to treatment: the patient's symptoms have markedly improved after treatment. Special discussion: I discussed in detail with the patient the higher chance of wound infection based on his presenting history. Based on the history and exam findings, there is no indication for further emergent testing or inpatient evaluation. I discussed with the patient/guardian the need to see the primary care provider for further evaluation of the symptoms. 03/29 17:33 Order name: Suture Tray Setup; Complete Time: 17:58 snw Administered Medications: 17:50 Not Given (changed orderr): Clindamycin 600 mg IM once ll1 17:50 Drug: Tetanus-Diphtheria Toxoid Adult 0.5 ml {Curriculum And Assessment Director: [employer]. Exp: ll1 12/27/2023. Lot #: [id number]. } Route: IM; Site: left deltoid; 18:59 Follow up: Response: No adverse reaction 1 17:50 Drug: [place] (HYDROcodone-acetaminophen) 10 mg-325 mg 1 tabs {Note: rass 0, pain 10/10.} ll1 Route: PO; 18:59 Follow up: Response: No adverse reaction; Pain is decreased; RASS: Alert and Calm (0) ll1 17:51 Drug: Clindamycin 300 mg Route: PO; ll1 18:23 Follow up: Response: No adverse reaction ll1 18:00 Drug: Lidocaine (1 %) 1 ea {Note: by Neal Salmon NP during I\T\D.} Volume: 20 ml; Route: iw Infiltration; 18:59 Follow up: Response: No adverse reaction ll1 Disposition Summary: 03/29/22 18:14 Discharge Ordered Location: Home snw Condition: Stable snw Diagnosis - Cutaneous abscess of left lower limb snw - Cellulitis of other sites snw Followup: snw - With: Emergency Department - When: As needed - Reason: Fever > 102 F, Worsening of condition Followup: snw - With: Private Physician - When: Tomorrow - Reason: Recheck today's complaints, Continuance of care Discharge Instructions: - Discharge Summary Sheet snw - Skin Abscess snw - Cellulitis, Adult snw - Incision and Drainage, Care After snw Forms: - Medication Reconciliation Form snw - Thank You Letter snw - Antibiotic Education snw - Prescription Opioid Use snw Prescriptions: - Clindamycin HCl 300 mg Oral Capsule - take 1 capsule by ORAL route every 8 hours for 10 days; 30 capsule; Refills: 0, snw Product Selection Permitted - Tramadol 50 mg Oral Tablet - take 1 tablet by ORAL route every 8 hours as needed; 12 tablet; Refills: 0, snw Product Selection Permitted Signatures: Jeana Salmon, BROOKE THERMOSTAT REPAIRER-Csnw Arelis Padilla, RN RN iw Nato Flores RN RN ll1
--- NOTE | 2022-03-29 18:14 | ER ---
Nurse's Notes [facility] Name: Choco Garcia Age: 46 yrs Sex: Male : 1975 Arrival Date: 03/29/2022 Time: 16:23 Bed 17 Private MD: Diagnosis: Cutaneous abscess of left lower limb;Cellulitis of other sites Presentation: 03/29 17:05 Chief complaint: Patient states: abscess to left posterior thigh X 2 weeks , states iw it's s spider bite. Coronavirus screen: At this time, the client does not indicate any symptoms associated with coronavirus-19. Ebola Screen: Patient negative for fever greater than or equal to 101.5 degrees Fahrenheit, and additional compatible Ebola Virus Disease symptoms Patient denies exposure to infectious person. Patient denies travel to an Ebola-affected area in the 21 days before illness onset. 17:05 Method Of Arrival: Ambulatory iw 17:10 Initial Sepsis Screen: Does the patient meet any 2 criteria? No. Patient's initial iw sepsis screen is negative. Does the patient have a suspected source of infection? No. Patient's initial sepsis screen is negative. Risk Assessment: Do you want to hurt yourself or someone else? Patient reports no desire to harm self or others. Onset of symptoms was March 29, 2022. 17:10 Acuity: BRENDA 3 iw Triage Assessment: 18:23 General: Appears in no apparent distress. Behavior is calm, cooperative, appropriate ll1 for age. Historical: - Allergies: 17:07 No Known Allergies; iw - Home Meds: 17:07 Plavix 75 mg Oral tab 1 tab once daily [Active]; aspirin 81 mg Oral cap 1 cap once iw daily [Active]; lisinopril Oral [Active]; - PMHx: 17:07 COPD; CVA; Hypertension; Hypercholesterolemia; iw - PSHx: 17:07 None; iw - Immunization history:: Adult Immunizations up to date, Last tetanus immunization: unknown. - Social history:: Smoking status: Patient reports the use of cigarette tobacco products, smokes one-half pack cigarettes per day. Screenin:32 Abuse screen: Denies threats or abuse. Nutritional screening: No deficits noted. ll1 Tuberculosis screening: No symptoms or risk factors identified. Fall Risk Total [place] Fall Scale indicates No Risk (0-24 pts). Assessment: 17:32 General: Appears uncomfortable, Behavior is calm, cooperative, appropriate for age. ll1 Pain: Complains of pain in left leg Quality of pain is described as aching. Derm: Abscess located on left leg is nickel sized, has no drainage, is hot to touch, is red, is raised. Musculoskeletal: Circulation, motion, and sensation intact. Capillary refill < 3 seconds. 18:20 Reassessment: No changes from previously documented assessment. Patient and/or family ll1 updated on plan of care and expected duration. Pain level reassessed. I\T\D by Neal Salmon NP. Dressing by Neal Salmon NP. See her note for further details. Vital Signs: 17:05 Resp 16; Temp 98.1; Pulse Ox 98% on R/A; Weight 71.67 kg; Height 5 ft. 8 in. (172.72 iw cm); Pain 10/10; 17:32 BP 112 / 83; Pulse 97; ll1 18:20 BP 110 / 87; Pulse 95; Resp 17; Pulse Ox 98% ; ll1 17:05 Body Mass Index 24.02 (71.67 kg, 172.72 cm) iw ED Course: 16:23 Patient arrived in ED. am2 17:00 Nato Flores, SEAN is Primary Nurse. ll1 17:00 Arm band placed on Patient placed in an exam room, on a stretcher. ll1 17:10 Triage completed. iw 17:27 Jeana Salmon FNP-C is PHCP. snw 17:27 Jeff Wright MD is Attending Physician. snw 17:30 Patient has correct armband on for positive identification. Bed in low position. Call ll1 light in reach. Side rails up X 1. Cardiac monitoring not applicable on this patient. 18:23 No provider procedures requiring assistance completed. Patient did not have IV access ll1 during this emergency room visit. Administered Medications: 17:50 Not Given (changed orderr): Clindamycin 600 mg IM once ll1 17:50 Drug: Tetanus-Diphtheria Toxoid Adult 0.5 ml {Change Lead: [employer]. Exp: ll1 12/27/2023. Lot #: [id number]. } Route: IM; Site: left deltoid; 18:59 Follow up: Response: No adverse reaction ll1 17:50 Drug: [place] (HYDROcodone-acetaminophen) 10 mg-325 mg 1 tabs {Note: rass 0, pain 10/10.} ll1 Route: PO; 18:59 Follow up: Response: No adverse reaction; Pain is decreased; RASS: Alert and Calm (0) ll1 17:51 Drug: Clindamycin 300 mg Route: PO; ll1 18:23 Follow up: Response: No adverse reaction ll1 18:00 Drug: Lidocaine (1 %) 1 ea {Note: by Neal Salmon NP during I\T\D.} Volume: 20 ml; Route: iw Infiltration; 18:59 Follow up: Response: No adverse reaction ll1 Medication: 18:54 VIS not applicable for this client. ll1 Outcome: 18:14 Discharge ordered by . snw 18:23 Patient left the ED. ll1 18:23 Discharged to home ambulatory. ll1 18:23 Condition: stable 18:23 Discharge instructions given to patient, family, Instructed on discharge instructions, follow up and referral plans. no drinking with medication, no driving heavy equipment, medication usage, wound care, Demonstrated understanding of instructions, follow-up care, medications, wound care, Prescriptions given X 2. Signatures: Jeana Salmon, ASSET PROTECTION REPRESENTATIVE-C ASSET PROTECTION REPRESENTATIVE-Csnw Arelis Padilla RN RN iw Tiffanie Day Lynsay RN RN ll1 Corrections: (The following items were deleted from the chart) 17:34 17:32 BP 112 / 83; ll1 ll1
[2022-03-29 19:13] VITALS: TEMP 98.1; O2SAT 98
[2022-03-29 19:18] VITALS: BP 112/83
== END 2022-03-29 18:23 | disposition home or self-care (01) ==
LOC: ER 16:22
PROC: 0H9LXZZ Drainage of Left Lower Leg Skin, External Approach (ICD-10-PCS; principal; 2022-03-29)
DX: L02.416 Cutaneous abscess of left lower limb (principal); L03.116 Cellulitis of left lower limb; F17.210 Nicotine dependence, cigarettes, uncomplicated; I10 Essential (primary) hypertension; Z23 Encounter for immunization; Z86.73 Personal history of transient ischemic attack (TIA), and cerebral infarction without residual deficits; Z79.01 Long term (current) use of anticoagulants
CPT/HCPCS: 90471; 90714; 99283

== ENCOUNTER 2023-11-28 19:36 | Emergency (ER) | payer SELFPAY ==
[2023-11-28] MEDS ORDERED: ALBUTEROL 2.5 MG/3 ML NEB SOL ONE (20:01)
[2023-11-28] MEDS ORDERED: IPRATROPIUM BROM 0.5MG/2.5ML ONE (20:01)
[2023-11-28] MEDS ORDERED: METHYLPREDNISOLONE 125 MG INJ ONE (20:01)
[2023-11-28 20:06] LABS: Absolute Basophils 0.1 K/uL (0-0.5); Absolute Eosinophils 0.1 K/uL (0-0.5); Absolute Lymphocytes (CBC) 2.2 K/uL (0.7-4.9); Absolute Monocytes 0.8 K/uL (0.1-1.3); Absolute Neutrophil 5.6 K/uL (1.8-8.0); Basophils % 0.7 % (0-1.3); Eosinophils % 1.7 % (0-4.4); Hematocrit 47.4 % (39.6-49.0); Hemoglobin 15.8 g/dL (13.6-17.9); Lymphocytes % 24.5 % (15.3-44.8); MCH 30.9 pg (27.0-35.0); MCHC 33.2 g/dL (32.0-36.0); MPV 8.2 fL (7.6-11.3); Monocytes % 9.5 % (3.3-12.3); Neutrophils % 63.6 % (41.7-73.7); Nucleated Red Blood Cells % 0.1 % (0-0); Platelets 268 thou/uL (152-406); Red Cell Distribution Width 13.6 % (12.1-15.2)
[2023-11-28 20:20] LABS: Albumin 3.8 g/dL (3.4-5.0); Albumin/Globulin Ratio 0.9 (1.1-1.8); Anion Gap 10.1 mEq/L (5.0-15.0); Bilirubin Direct 0.2 mg/dL (0-0.2); Bilirubin Indirect, Calculated 0.5 mg/dL (0.2-0.8); Bilirubin Total 0.7 mg/dL (0.2-1.0); Globulin 4.2 g/dL (2.3-3.5); Potassium 4.1 mEq/L (3.5-5.1); Troponin High Sensitivity 4.8 pg/mL (<58.9)
--- NOTE | 2023-11-28 20:29 | RAD REPORT ---
EXAM DESCRIPTION: RAD - Chest Single View - 11/28/2023 8:17 pm CLINICAL HISTORY: CHEST PAIN COMPARISON: Chest Single View dated 02/16/2022; Chest Single View dated 02/09/2020; Chest Pa And Lat ( 2 Views) dated 04/18/2017 FINDINGS: Lines: None. Lungs: No evidence of edema or pneumonia. Pleural: No significant pleural effusions or pneumothorax. Cardiac: The heart size is within normal limits. Mediastinum: Within normal limits. Bones: No acute fractures. Other: None IMPRESSION: No acute cardiopulmonary disease.
--- NOTE | 2023-11-28 21:51 | ER ---
Nurse's Notes [facility] Name: Choco Garcia Age: 48 yrs Sex: Male : 1975 Arrival Date: 11/28/2023 Time: 19:36 Bed 15 Private MD: Diagnosis: COPD/ Chronic obstructive pulmonary disease with (acute) exacerbation Presentation: 11/27 19:47 Chief complaint: Patient states: I have been really short of breath since yesterday, i bm8 also have chest pain on the left side for about 6 hrs. Coronavirus screen: At this time, the client does not indicate any symptoms associated with coronavirus-19. Ebola Screen: Patient negative for fever greater than or equal to 101.5 degrees Fahrenheit, and additional compatible Ebola Virus Disease symptoms Patient denies exposure to infectious person. Patient denies travel to an Ebola-affected area in the 21 days before illness onset. No symptoms or risks identified at this time. 19:47 Method Of Arrival: Ambulatory bm8 19:49 Initial Sepsis Screen: Does the patient meet any 2 criteria? No. Patient's initial bm8 sepsis screen is negative. Does the patient have a suspected source of infection? No. Patient's initial sepsis screen is negative. Risk Assessment: Do you want to hurt yourself or someone else? Patient reports no desire to harm self or others. Onset of symptoms was November 27, 2023 at 09:00. 19:49 Acuity: BRENDA 2 bm8 Triage Assessment: 19:40 General: Appears distressed, uncomfortable, Behavior is cooperative, appropriate for bm8 age, anxious. Pain: Complains of pain in left breast Pain does not radiate. Pain currently is 8 out of 10 on a pain scale. Quality of pain is described as sharp. EENT: No deficits noted. No signs and/or symptoms were reported regarding the EENT system. Neuro: No deficits noted. Level of Consciousness is awake, alert, obeys commands, Oriented to person, place, time, situation, Appropriate for age Conservation Science Teacher are equal bilaterally Moves all extremities. Full function Gait is steady. Cardiovascular: Reports chest pain, shortness of breath, Heart tones S1 S2 present Capillary refill < 3 seconds Patient's skin is warm and dry. Rhythm is sinus rhythm. Respiratory: Reports shortness of breath at rest Airway is patent Respiratory effort is even, unlabored, Respiratory pattern is symmetrical, hyperventilation Breath sounds are clear bilaterally. the patient has moderate shortness of breath. GI: No deficits noted. No signs and/or symptoms were reported involving the gastrointestinal system. : No deficits noted. No signs and/or symptoms were reported regarding the genitourinary system. Derm: No deficits noted. No signs and/or symptoms reported regarding the dermatologic system. Musculoskeletal: No deficits noted. No signs and/or symptoms reported regarding the musculoskeletal system. Historical: - Allergies: 19:50 No Known Allergies; bm8 - Home Meds: 19:50 aspirin 81 mg Oral cap 1 cap once daily [Active]; lisinopril 20 mg oral tablet bm8 [Active]; Plavix 75 mg Oral tab 1 tab once daily [Active]; albuterol sulfate 90 mcg/actuation inhalation HFA Aerosol Inhaler once [Active]; - PMHx: 19:50 COPD; CVA; Hypercholesterolemia; Hypertension; bm8 - PSHx: 19:50 Unable to Obtain; bm8 - Immunization history:: Adult Immunizations up to date. - Infectious Disease History:: Denies. - Social history:: Smoking status: Patient reports the use of cigarette tobacco products, smokes one pack cigarettes per day. Patient uses alcohol. - Family history:: not pertinent. Screenin:18 [facility] ED Fall Risk Assessment (Adult) History of falling in the last 3 months, cp4 including since admission No falls in past 3 months (0 pts) Confusion or Disorientation No (0 pts) Intoxicated or Sedated No (0 pts) Impaired Gait No (0 pts) Mobility Assist Device Used No (0 pt) Altered Elimination No (0 pt) Score/Fall Risk Level 0 - 2 = Low Risk Oriented to surroundings, Maintained a safe environment, Assessed \T\ reinforced patient's understanding of fall precautions, Hourly rounding (assess needs \T\ fall precautionary measures) done. Abuse screen: Denies threats or abuse. Nutritional screening: No deficits noted. Tuberculosis screening: No symptoms or risk factors identified. Assessment: 20:18 General: Appears distressed, Behavior is calm, cooperative, appropriate for age. cp4 Cardiovascular: Reports chest pain. Respiratory: Reports shortness of breath Airway is patent Breath sounds with wheezes bilaterally. Vital Signs: 19:40 BP 149 / 104; Pulse 96; Resp 26; Temp 97.9; Pulse Ox 100% on R/A; Weight 65.77 kg; bm8 Height 5 ft. 9 in. ; Pain 8/10; 20:30 BP 136 / 96; Pulse 97; Resp 20; Pulse Ox 98% ; cp4 21:30 BP 133 / 94; Pulse 97; Resp 18; Pulse Ox 97% ; cp4 19:40 Body Mass Index 21.41 (65.77 kg, 175.26 cm) bm8 19:40 Pain Scale: Adult bm8 ED Course: 19:39 Patient arrived in ED. jb4 19:46 Amy White is Primary Nurse. cp4 19:48 Dangelo Rodriguez MD is Attending Physician. rt 19:50 Triage completed. bm8 19:50 Troponin HS Sent. jb4 19:50 Magnesium Sent. jb4 19:50 LFT's Sent. jb4 19:50 CBC with Diff Sent. jb4 19:50 Basic Metabolic Panel Sent. jb4 19:50 Initial lab(s) drawn, by me, sent to lab. Inserted saline lock: 18 gauge in right jb4 antecubital area, using aseptic technique. Blood collected. 19:53 Arm band placed on left wrist. Patient placed in an exam room, on a stretcher, on bm8 manager monitoring, on pulse oximetry. EKG completed in triage. Results shown to MD. EKG done per protocol. Performed by ED Staff. Shown to ED physician. Labs ordered per protocol. Drawn by ED staff. 20:18 Bed in low position. Call light in reach. Side rails up X 1. cp4 20:19 XRAY Chest (1 view) In Process Unspecified. EDMS 21:56 No provider procedures requiring assistance completed. intact, bleeding controlled, No cp4 redness/swelling at site. Pressure dressing applied. 21:56 Provided Education on: COPD. cp4 Administered Medications: 20:08 Drug: MethylPrednisoLONE IVP 125 mg IVP once Route: IVP; Site: right antecubital; cp4 21:37 Follow up: Response: No adverse reaction cp4 20:08 Drug: DuoNeb Nebulize (3:1) (2.5 mg - 0.5 mg) 3 ml Nebulizer once Route: Nebulizer; cp4 21:37 Follow up: Response: No adverse reaction cp4 Medication: 20:18 VIS not applicable for this client. cp4 Outcome: 21:50 Discharge ordered by . rt 21:56 Discharged to home ambulatory, cp4 21:56 Condition: stable 21:56 Discharge instructions given to patient, Instructed on discharge instructions, follow up and referral plans. medication usage, Demonstrated understanding of instructions, follow-up care, medications, Prescriptions given X 2, 21:58 Patient left the ED. cp4 Signatures: Dispatcher [employer] EDMS Edil Lundberg, RN RN jb4 Dangelo Rodriguez MD MD rt Potter, Christina cp4 Hu Muñoz, RN RN bm8
--- NOTE | 2023-11-28 21:51 | EDPHYS ---
Physician Documentation [facility] Name: Choco Garcia Age: 48 yrs Sex: Male : 1975 Arrival Date: 11/28/2023 Time: 19:36 Bed 15 Private MD: ED Physician Dangelo Rodriguez HPI: 11/27 20:04 This 48 yrs old Male presents to ER via Ambulatory with complaints of dyspnea, chest rt pain. 20:04 Patient presents to the ED with dyspnea, chest pain. Has reported history of COPD, no rt prior cardiac history. The symptoms started last night. States the chest pain has been intermittent but the shortness of breath has been constant, worse when he lies down. Denies exertional component. Reports nausea but denies other acute complaints, symptoms are moderate in severity, no other aggravating or alleviating factors.. Historical: - Allergies: 19:50 No Known Allergies; bm8 - Home Meds: 19:50 aspirin 81 mg Oral cap 1 cap once daily [Active]; lisinopril 20 mg oral tablet bm8 [Active]; Plavix 75 mg Oral tab 1 tab once daily [Active]; albuterol sulfate 90 mcg/actuation inhalation HFA Aerosol Inhaler once [Active]; - PMHx: 19:50 COPD; CVA; Hypercholesterolemia; Hypertension; bm8 - PSHx: 19:50 Unable to Obtain; bm8 - Immunization history:: Adult Immunizations up to date. - Infectious Disease History:: Denies. - Social history:: Smoking status: Patient reports the use of cigarette tobacco products, smokes one pack cigarettes per day. Patient uses alcohol. - Family history:: not pertinent. ROS: 20:04 Constitutional: Negative for fever, chills, and weight loss, Abdomen/GI: Negative for rt abdominal pain, nausea, vomiting, diarrhea, and constipation, MS/Extremity: Negative for injury and deformity, Skin: Negative for injury, rash, and discoloration, Neuro: Negative for headache, weakness, numbness, tingling, and seizure, 20:04 Cardiovascular: Positive for chest pain, Negative for edema, 20:04 Respiratory: Positive for cough, shortness of breath, Exam: 20:04 Constitutional: This is a well developed, well nourished patient who is awake, alert, rt and in no acute distress. Head/Face: Normocephalic, atraumatic. Chest/axilla: Normal chest wall appearance and motion. Nontender with no deformity. No lesions are appreciated. Cardiovascular: Regular rate and rhythm with a normal S1 and S2. No gallops, murmurs, or rubs. Normal PMI, no JVD. No pulse deficits. Abdomen/GI: Soft, non-tender, with normal bowel sounds. No distension or tympany. No guarding or rebound. No evidence of tenderness throughout. Skin: Warm, dry with normal turgor. Normal color with no rashes, no lesions, and no evidence of cellulitis. MS/ Extremity: Pulses equal, no cyanosis. Neurovascular intact. Full, normal range of motion. Neuro: Awake and alert, GCS 15, oriented to person, place, time, and situation. Cranial nerves II-XII grossly intact. Motor strength 5/5 in all extremities. Sensory grossly intact. Cerebellar exam normal. Normal gait. Psych: Awake, alert, with orientation to person, place and time. Behavior, mood, and affect are within normal limits. 20:04 ECG was reviewed by the Attending Physician. 20:04 Respiratory: Wheezes heard on all lung pollard, no respiratory distress, Vital Signs: 19:40 BP 149 / 104; Pulse 96; Resp 26; Temp 97.9; Pulse Ox 100% on R/A; Weight 65.77 kg; bm8 Height 5 ft. 9 in. ; Pain 8/10; 20:30 BP 136 / 96; Pulse 97; Resp 20; Pulse Ox 98% ; cp4 21:30 BP 133 / 94; Pulse 97; Resp 18; Pulse Ox 97% ; cp4 19:40 Body Mass Index 21.41 (65.77 kg, 175.26 cm) bm8 19:40 Pain Scale: Adult bm8 MDM: 19:50 Patient medically screened. rt 22:58 Differential Diagnosis Bronchospasm, pneumonia, ACS. Data reviewed: vital signs, nurses rt notes, lab test result(s), EKG, radiologic studies. Consideration of Admission/Observation Escalation of care including admission/observation considered. Symptoms significantly improving with bronchodilators, steroids. Troponin is negative. Patient is desirous of discharge. Have recommended patient get repeat troponin testing be performed, he declines this. He will return for worsening symptoms.. Independent interpretation of the following test(s) in the Emergency Department X-Ray: My interpretation is No pneumonia seen on interpretation of x-ray images. Test considered but Not performed: CT: Low suspicion for pulmonary embolism, CT angiogram is not indicated. Care significantly affected by the following chronic conditions: Chronic Obstructive Pulmonary Disease. Counseling: I had a detailed discussion with the patient and/or guardian regarding the historical points, exam findings, and any diagnostic results supporting the discharge/admit diagnosis, lab results, radiology results, the need for outpatient follow up, to return to the emergency department if symptoms worsen or persist or if there are any questions or concerns that arise at home. Response to treatment: the patient's symptoms have markedly improved after treatment. 11/27 19:40 Order name: Basic Metabolic Panel; Complete Time: 21:01 [facility] 11/27 19:40 Order name: CBC with Diff; Complete Time: 20:30 [facility] 11/27 19:40 Order name: LFT's; Complete Time: 21: [facility] 11/27 19:40 Order name: Magnesium; Complete Time: 21: [facility] 11/27 19:40 Order name: Troponin HS; Complete Time: 21: [facility] 11/27 20:49 Order name: NT PRO-BNP; Complete Time: 21:01 [facility] 11/27 19:40 Order name: XRAY Chest (1 view); Complete Time: 20:30 [facility] 11/27 19:40 Order name: EKG; Complete Time: 19:41 [facility] 11/27 19:40 Order name: Cardiac monitoring; Complete Time: 19:46 [facility] 11/27 19:40 Order name: EKG - Nurse/Tech; Complete Time: 19:46 [facility] 11/27 19:40 Order name: IV Saline Lock; Complete Time: 19:46 [facility] 11/27 19:40 Order name: Labs collected and sent; Complete Time: 19:50 [facility] 11/27 19:40 Order name: O2 Per Protocol; Complete Time: 19:46 [facility] 11/27 19:40 Order name: O2 Sat Monitoring; Complete Time: 19:46 EC:04 Rate is 93 beats/min. Rhythm is regular, Normal Sinus Rhythm with No ectopy. QRS Morse rt is Normal. [place] interval is normal. QRS interval is normal. QT interval is normal. No Q waves. T waves are Normal. No ST changes noted. Interpreted by me. Administered Medications: 20:08 Drug: MethylPrednisoLONE IVP 125 mg IVP once Route: IVP; Site: right antecubital; cp4 21:37 Follow up: Response: No adverse reaction cp4 20:08 Drug: DuoNeb Nebulize (3:1) (2.5 mg - 0.5 mg) 3 ml Nebulizer once Route: Nebulizer; cp4 21:37 Follow up: Response: No adverse reaction cp4 Disposition Summary: 11/28/23 21:50 Discharge Ordered Notes: Location: Home rt Problem: new rt Symptoms: have improved rt Condition: Stable rt Diagnosis - COPD/ Chronic obstructive pulmonary disease with (acute) exacerbation rt Followup: rt - With: Private Physician - When: 2 - 3 days - Reason: Discharge Instructions: - Discharge Summary Sheet rt - Chronic Obstructive Pulmonary Disease rt Forms: - Medication Reconciliation Form rt - Thank You Letter rt - Antibiotic Education rt - Prescription Opioid Use rt - Patient Portal Instructions rt - Leadership Thank You Letter rt Prescriptions: - albuterol sulfate 90 mcg/actuation Inhalation HFA Aerosol Inhaler - inhale 3 puff INHALATION route every 3 to 6 hours as needed for bronchospasm; 2 rt Each; Refills: 0, Product Selection Permitted - Prednisone 20 mg Oral Tablet - take 2 tablets ORAL route once daily for 5 days; 10 tablet; Refills: 0, Product rt Selection Permitted Signatures: Dispatcher [employer] Edil Delarosa, RN RN jb4 Dangelo Rodriguez MD MD rt Amy White cp4 Hu Muñoz RN RN bm8 Corrections: (The following items were deleted from the chart) 20:50 19:59 PROBNP+C.LAB.BRZ ordered. EDMS EDMS
[2023-11-29 07:08] VITALS: BP 133/94; TEMP 97.9; O2SAT 97
--- NOTE | 2023-11-29 12:41 | EKG ---
Test Date: 2023-11-28 Test Time: 19:43:17 Appeals Writer: RG MEASUREMENT RESULTS: Intervals: Rate: 93 GA: 94 QRSD: 68 QT: 340 QTc: 422 [place]: P: -8 GA: 94 QRS: 67 T: 82 INTERPRETIVE STATEMENTS: Sinus rhythm with short GA Otherwise normal ECG Compared to ECG 11/28/2023 19:42:23 Short GA interval now present Electronically Signed On 11-29-23 12:40:10 CDT by Carter Balderas
--- NOTE | 2023-11-29 12:41 | EKG ---
Test Date: 2023-11-28 Test Time: 19:42:23 Government Program Manager: RG MEASUREMENT RESULTS: Intervals: Rate: 99 IN: 112 QRSD: 68 QT: 336 QTc: 431 [place]: P: 45 IN: 112 QRS: 67 T: 87 INTERPRETIVE STATEMENTS: Normal sinus rhythm Normal ECG Compared to ECG 02/16/2022 21:39:47 Short IN interval no longer present Electronically Signed On 11-29-23 12:40:11 CDT by Carter Balderas
== END 2023-11-28 21:58 | disposition home or self-care (01) ==
LOC: ER 19:36
DX: J44.1 Chronic obstructive pulmonary disease with (acute) exacerbation (principal); I10 Essential (primary) hypertension; F17.210 Nicotine dependence, cigarettes, uncomplicated; Z86.73 Personal history of transient ischemic attack (TIA), and cerebral infarction without residual deficits; Z79.01 Long term (current) use of anticoagulants; Z79.82 Long term (current) use of aspirin
CPT/HCPCS: 36415; 71045; 80048; 80076; 83735; 83880; 84484; 85025; 93005; 94640; 96374; 99285; J2930; J7613; J7644

== ENCOUNTER 2024-04-07 16:44 | Emergency (ER) | payer SELFPAY ==
[2024-04-07] MEDS ORDERED: IPRATROPIUM BROM 0.5MG/2.5ML ONE (18:09)
[2024-04-07] MEDS ORDERED: METHYLPREDNISOLONE 125 MG INJ ONE (18:10)
[2024-04-07] MEDS ORDERED: NA CHLORIDE 0.9% 500 ML ONE (18:10)
[2024-04-07] MEDS ORDERED: LEVALBUTEROL 1.25 MG/3 ML NEB ONE (18:10)
[2024-04-07 18:17] LABS: Absolute Basophils 0.1 K/uL (0-0.5); Absolute Eosinophils 0.2 K/uL (0-0.5); Absolute Lymphocytes (CBC) 2.4 K/uL (0.7-4.9); Absolute Monocytes 0.9 K/uL (0.1-1.3); Absolute Neutrophil 6.4 K/uL (1.8-8.0); Basophils % 0.8 % (0-1.3); Hematocrit 45.4 % (39.6-49.0); Hemoglobin 15.3 g/dL (13.6-17.9); Lymphocytes % 23.7 % (15.3-44.8); MCH 31.9 pg (27.0-35.0); MCHC 33.8 g/dL (32.0-36.0); MCV 94.5 fL (80-100); MPV 8.2 fL (7.6-11.3); Monocytes % 9.1 % (3.3-12.3); Neutrophils % 64.4 % (41.7-73.7); Nucleated Red Blood Cells % 0.1 % (0-0); Platelets 335 thou/uL (152-406); RBC Red Blood Cell Count 4.81 M/uL (4.33-5.43)
[2024-04-07 18:23] LABS: ALT/SGPT 35 U/L (16-61); AST/SGOT 26 U/L (15-37); Albumin 3.6 g/dL (3.4-5.0); Albumin/Globulin Ratio 0.9 (1.1-1.8); Alkaline Phosphatase 73 U/L (45-117); Anion Gap 8.7 mEq/L (5.0-15.0); BUN Blood Urea Nitrogen 13 mg/dL (7-18); Bicarbonate 26 mEq/L (21-32); Bilirubin Total 0.2 mg/dL (0.2-1.0); Globulin 4.1 g/dL (2.3-3.5); Glomerular Filtration Rate 57 ml/min (=/>90); Glucose Level 100 mg/dL (74-106); Lipase 69 U/L (13-75); NT PRO-BNP 75 pg/mL (<125); Potassium 4.7 mEq/L (3.5-5.1); Protein, Total 7.7 g/dL (6.4-8.2); Sodium Level 134 mEq/L (136-145)
[2024-04-07 18:24] LABS: Bilirubin Direct < 0.2 mg/dL (0-0.2)
[2024-04-07 18:55] LABS: SARS-CoV-2 Antigen CONTROL BLUE LINE VIS/BG OK; SARS-CoV-2 Antigen Rapid Res Negative (Negative)
--- NOTE | 2024-04-07 19:42 | RAD REPORT ---
EXAM DESCRIPTION: RAD - Chest Pa And Lat (2 Views) - 04/07/2024 6:11 pm CLINICAL HISTORY: COUGH COMPARISON: Chest Single View dated 11/28/2023; Chest Single View dated 02/16/2022; Chest Single View d ated 02/09/2020; Chest Pa And Lat (2 Views) dated 04/18/2017 TECHNIQUE: PA and lateral views of the chest were obtained. FINDINGS: The lungs are clear. Heart size is normal and central vasculature is within normal limits. No pleural effusion or pneumothorax seen. No acute bony finding noted. IMPRESSION: No acute cardiopulmonary process.
--- NOTE | 2024-04-07 19:49 | ER ---
Nurse's Notes [facility] Name: Choco Garcia Age: 48 yrs Sex: Male : 1975 Arrival Date: 04/07/2024 Time: 16:44 Bed 16 Private MD: Diagnosis: COPD/ Chronic obstructive pulmonary disease with (acute) exacerbation Presentation: 04/07 16:57 Chief complaint: Patient states: Pt c/o chest congestion with pain, SOB, non-productive tl4 cough, chills, and diarrhea x 1-2 weeks. Pt denies fever. Coronavirus screen: congestion, cough unrelated to allergies, diarrhea, shaking with chills, shortness of breath. Ebola Screen: No symptoms or risks identified at this time. Initial Sepsis Screen: Does the patient meet any 2 criteria? No. Patient's initial sepsis screen is negative. Does the patient have a suspected source of infection? No. Patient's initial sepsis screen is negative. Risk Assessment: Do you want to hurt yourself or someone else? Patient reports no desire to harm self or others. Onset of symptoms is unknown. 16:57 Method Of Arrival: Ambulatory tl4 16:57 Acuity: BRENDA 3 tl4 Triage Assessment: 17:07 General: Appears uncomfortable, Behavior is cooperative. Pain: Complains of pain in tl4 chest. EENT: Reports nasal congestion. Neuro: Level of Consciousness is awake, alert, obeys commands, Oriented to person, place, time, situation. Cardiovascular: Capillary refill < 3 seconds Patient's skin is warm and dry. Respiratory: Reports shortness of breath cough that is Onset: The symptoms/episode began/occurred gradually, the patient has moderate shortness of breath. GI: Reports diarrhea. : No signs and/or symptoms were reported regarding the genitourinary system. Derm: No signs and/or symptoms reported regarding the dermatologic system. Musculoskeletal: No signs and/or symptoms reported regarding the musculoskeletal system. Historical: - Allergies: 17:04 No Known Allergies; tl4 - Home Meds: 17:04 aspirin 325 mg oral tablet 1 tab daily [Active]; lisinopril 20 mg Oral tablet daily tl4 [Active]; albuterol sulfate 90 mcg/actuation Inhl HFA Aerosol Inhaler 2 inhalations [Active]; atorvastatin oral [Active]; - PMHx: 17:04 COPD; CVA; Hypercholesterolemia; Hypertension; tl4 - Immunization history:: Adult Immunizations. - Infectious Disease History:: Denies. - Social history:: Smoking status: Patient reports the use of cigarette tobacco products, smokes one pack cigarettes per day. - Family history:: not pertinent. - Hospitalizations: : No recent hospitalization is reported. Screenin:05 [facility] ED Fall Risk Assessment (Adult) History of falling in the last 3 months, rs5 including since admission No falls in past 3 months (0 pts) Confusion or Disorientation No (0 pts) Intoxicated or Sedated No (0 pts) Impaired Gait No (0 pts) Mobility Assist Device Used No (0 pt) Altered Elimination No (0 pt) Score/Fall Risk Level 0 - 2 = Low Risk Oriented to surroundings, Maintained a safe environment. Abuse screen: Denies threats or abuse. Nutritional screening: No deficits noted. Tuberculosis screening: No symptoms or risk factors identified. Assessment: 18:05 Reassessment: pt arrived in room. rs5 18:06 General: Appears in no apparent distress. comfortable, Behavior is calm, cooperative. rs5 Pain: Denies pain. Neuro: Level of Consciousness is awake, alert, obeys commands, Oriented to person, place, time, situation. Cardiovascular: Patient's skin is warm and dry. Rhythm is regular. Cardiovascular: Denies chest pain. Respiratory: Airway is patent Respiratory effort is even, unlabored, Respiratory pattern is regular, symmetrical. Respiratory: Reports shortness of breath cough that is GI: Abdomen is round non-distended, Abd is soft and non tender X 4 quads. : No signs and/or symptoms were reported regarding the genitourinary system. EENT: No signs and/or symptoms were reported regarding the EENT system. Derm: Skin is intact, Skin is pink, warm \T\ dry. Musculoskeletal: Range of motion: intact in all extremities. 18:52 Reassessment: Patient and/or family updated on plan of care and expected duration. Pain rs5 level reassessed. Patient is alert, oriented x 3, equal unlabored respirations, skin warm/dry/pink. Patient states feeling better. Vital Signs: 16:57 BP 106 / 70; Pulse 100; Resp 22; Temp 98.1(O); Pulse Ox 97% on R/A; Weight 81.65 kg; tl4 Height 5 ft. 8 in. ; Pain 5/10; 18:50 BP 121 / 80; Pulse 95; Resp 18; Temp 98(O); Pulse Ox 98% on R/A; rs5 19:33 BP 118 / 73; Pulse 97; Resp 18; Pulse Ox 100% on R/A; pc2 16:57 Body Mass Index 27.37 (81.65 kg, 172.72 cm) tl4 16:57 Pain Scale: Adult tl4 ED Course: 16:46 Patient arrived in ED. mg5 16:51 Efren Pierre DO is Attending Physician. ms3 16:55 Attending Physician role handed off by Efren Pierre DO rn 16:55 Blaise Rossi MD is Attending Physician. rn 17:04 Triage completed. tl4 17:08 Arm band placed on right wrist. tl4 18:05 Patient has correct armband on for positive identification. Placed in gown. Bed in low rs5 position. Call light in reach. Side rails up X2. 18:05 No provider procedures requiring assistance completed. rs5 18:06 Tyrone Menjivar, RN is Primary Nurse. rs5 18:08 Inserted saline lock: 20 gauge in left antecubital area, using aseptic technique. Blood jr12 collected. Flushed with 10 mL NS. 18:08 EKG done, by ED staff, reviewed by Blaise Rossi MD COVID swab sent to lab. Flu and/or jr12 RSV swab sent to lab. 18:08 Flu Sent. jr12 18:08 SARS RAPID Sent. jr12 18:08 Lipase Sent. jr12 18:08 LFT's Sent. jr12 18:13 XRAY Chest Pa And Lat (2 Views) In Process Unspecified. EDMS 20:08 Provided Education on: medications and f/u. pc2 20:08 IV discontinued, intact, bleeding controlled, No redness/swelling at site. Pressure pc2 dressing applied. Administered Medications: 18:10 Drug: NS 0.9% IV 500 ml IV at bolus once Route: IV; Rate: bolus; Site: left antecubital;rs5 18:51 Follow up: Response: No adverse reaction; IV Status: Completed infusion rs5 18:10 Drug: MethylPrednisoLONE IVP 125 mg IVP once Route: IVP; Site: left antecubital; rs5 18:30 Follow up: Response: No adverse reaction rs5 18:10 Drug: Levalbuterol Inhalation 1.25 mg Inhalation once Route: Inhalation; rs5 18:30 Follow up: Response: No adverse reaction rs5 18:10 Drug: Levalbuterol Inhalation 1.25 mg Inhalation once Route: Inhalation; rs5 18:30 Follow up: Response: No adverse reaction rs5 18:10 Drug: Ipratropium Inhalation Aerosol 0.5 mg Inhalation once Route: Inhalation; rs5 18:30 Follow up: Response: No adverse reaction rs5 20:06 Drug: AZITHromycin PO 500 mg PO once Route: PO; pc2 20:06 Follow up: Response: Medication administered at discharge. pc2 Medication: 18:22 VIS not applicable for this client. rs5 Outcome: 19:49 Discharge ordered by . rn 20:07 Discharged to home ambulatory, with family, pc2 20:07 Condition: stable 20:07 Discharge instructions given to patient, family, Instructed on discharge instructions, follow up and referral plans. medication usage, Demonstrated understanding of instructions, follow-up care, medications, Prescriptions given X 3, 20:08 Patient left the ED. pc2 Signatures: Dispatcher [employer] EDMS Blaise Rossi MD MD rn Sims, Marcus, DO DO ms3 Tyrone Menjivar RN RN rs5 Sidra Hamilton 5 Winnie Lino 12 Aj Colin RN RN tl4 Carmen Schwarz, RN RN pc2
--- NOTE | 2024-04-07 19:49 | EDPHYS ---
Physician Documentation [facility] Name: Choco Garcia Age: 48 yrs Sex: Male : 1975 Arrival Date: 04/07/2024 Time: 16:44 Bed 16 Private MD: ED Physician Blaise Rossi HPI: 04/07 17:07 This 48 yrs old Male presents to ER via Ambulatory with complaints of Chest Congestion, rn Shortness Of Breath. 17:07 The patient has shortness of breath at rest, with light activity. Onset: The rn symptoms/episode began/occurred 1 week(s) ago. Duration: The symptoms are continuous. The patient's shortness of breath is aggravated by coughing, light activity, is alleviated by nothing. Severity of symptoms: At their worst the symptoms were mild in the emergency department the symptoms are unchanged. The patient has experienced similar episodes in the past. Patient reports nonproductive cough, congestion, shortness of breath for the last week. No fever or chills. No trauma. No hemoptysis. No abdominal pain. Does report diarrhea as well, nonbloody. Historical: - Allergies: 17:04 No Known Allergies; tl4 - Home Meds: 17:04 aspirin 325 mg oral tablet 1 tab daily [Active]; lisinopril 20 mg Oral tablet daily tl4 [Active]; albuterol sulfate 90 mcg/actuation Inhl HFA Aerosol Inhaler 2 inhalations [Active]; atorvastatin oral [Active]; - PMHx: 17:04 COPD; CVA; Hypercholesterolemia; Hypertension; tl4 - Immunization history:: Adult Immunizations. - Infectious Disease History:: Denies. - Social history:: Smoking status: Patient reports the use of cigarette tobacco products, smokes one pack cigarettes per day. - Family history:: not pertinent. - Hospitalizations: : No recent hospitalization is reported. ROS: 17:07 Constitutional: Negative for fever, chills, and weight loss, Cardiovascular: Negative rn for chest pain, palpitations, and edema, Respiratory: Positive for cough and shortness of breath Abdomen/GI: Negative for abdominal pain, positive for diarrhea MS/Extremity: Negative for injury and deformity, Neuro: Negative for headache, numbness, tingling, and seizure, Exam: 17:07 Constitutional: This is a well developed, well nourished patient who is awake, alert, rn mild tachypnea Cardiovascular: Tachycardic, regular. No pulse deficits. Respiratory: Tachypnea, diffuse wheezing, worse on the left side, no retractions Abdomen/GI: Soft, non-tender MS/ Extremity: Pulses equal, no cyanosis. Neuro: Awake and alert, GCS 15 18:46 ECG was reviewed by the Attending Physician. rn Vital Signs: 16:57 BP 106 / 70; Pulse 100; Resp 22; Temp 98.1(O); Pulse Ox 97% on R/A; Weight 81.65 kg; tl4 Height 5 ft. 8 in. ; Pain 5/10; 18:50 BP 121 / 80; Pulse 95; Resp 18; Temp 98(O); Pulse Ox 98% on R/A; rs5 19:33 BP 118 / 73; Pulse 97; Resp 18; Pulse Ox 100% on R/A; pc2 16:57 Body Mass Index 27.37 (81.65 kg, 172.72 cm) tl4 16:57 Pain Scale: Adult tl4 MDM: 16:55 Patient medically screened. rn 19:48 Differential diagnosis: Anemia Anxiety Reaction Bronchitis Chronic Obstructive rn Pulmonary Disease pneumonia, Pneumothorax pulmonary edema. Data reviewed: vital signs, nurses notes, lab test result(s), EKG, radiologic studies, plain films, and as a result, I will discharge patient. Care significantly affected by the following chronic conditions: Chronic Obstructive Pulmonary Disease. Counseling: I had a detailed discussion with the patient and/or guardian regarding the historical points, exam findings, and any diagnostic results supporting the discharge/admit diagnosis, lab results, radiology results, the need for outpatient follow up, to return to the emergency department if symptoms worsen or persist or if there are any questions or concerns that arise at home. Response to treatment: the patient's symptoms have markedly improved after treatment, and as a result, I will discharge patient. Special discussion: I discussed with the patient/guardian in detail that at this point there is no indication for admission to the hospital. It is understood, however, that if the symptoms persist or worsen the patient needs to return immediately for re-evaluation. ED course: Patient markedly improved, no oxygen requirement, feels much better. Ran out of his inhaler recently. Will discharge home with antibiotics and inhaler as well as steroids. Return precautions given and understood.. 04/07 17:01 Order name: CBC with Diff; Complete Time: 18:52 rn 08 17:01 Order name: Basic Metabolic Panel; Complete Time: 18:52 rn 04/07 17:01 Order name: LFT's; Complete Time: 18:52 rn 04/07 17:01 Order name: Lipase; Complete Time: 18:52 rn 04/07 17:01 Order name: SARS RAPID; Complete Time: 18:59 rn 04/07 17:01 Order name: Flu; Complete Time: 18:59 rn 04/07 17:01 Order name: BNP; Complete Time: 18:52 rn 04/07 17:01 Order name: XRAY Chest Pa And Lat (2 Views); Complete Time: 19:43 rn 04/07 17:01 Order name: IV Start; Complete Time: 18:08 rn 04/07 17:01 Order name: EKG - Nurse/Tech; Complete Time: 18:08 rn EC:46 Rate is 99 beats/min. Rhythm is regular. QRS [place] is Normal. QRS interval is normal. QT rn interval is normal. No Q waves. T waves are Normal. No ST changes noted. Clinical impression: NSR w/ Non-specific ST/T Changes. Interpreted by me. Reviewed by me. Administered Medications: 18:10 Drug: NS 0.9% IV 500 ml IV at bolus once Route: IV; Rate: bolus; Site: left antecubital;rs5 18:51 Follow up: Response: No adverse reaction; IV Status: Completed infusion rs5 18:10 Drug: MethylPrednisoLONE IVP 125 mg IVP once Route: IVP; Site: left antecubital; rs5 18:30 Follow up: Response: No adverse reaction rs5 18:10 Drug: Levalbuterol Inhalation 1.25 mg Inhalation once Route: Inhalation; rs5 18:30 Follow up: Response: No adverse reaction rs5 18:10 Drug: Levalbuterol Inhalation 1.25 mg Inhalation once Route: Inhalation; rs5 18:30 Follow up: Response: No adverse reaction rs5 18:10 Drug: Ipratropium Inhalation Aerosol 0.5 mg Inhalation once Route: Inhalation; rs5 18:30 Follow up: Response: No adverse reaction rs5 20:06 Drug: AZITHromycin PO 500 mg PO once Route: PO; pc2 20:06 Follow up: Response: Medication administered at discharge. pc2 Disposition Summary: 04/07/24 19:49 Discharge Ordered Notes: Location: Home rn Problem: an acute exacerbation rn Symptoms: have improved rn Condition: Stable rn Diagnosis - COPD/ Chronic obstructive pulmonary disease with (acute) exacerbation rn Followup: rn - With: Private Physician - When: As needed - Reason: Recheck today's complaints, Re-evaluation by your physician Discharge Instructions: - Discharge Summary Sheet rn - How to Use a Dry Powder Inhaler rn - Chronic Obstructive Pulmonary Disease Exacerbation rn Forms: - Medication Reconciliation Form rn - Antibiotic broomcorn grader - Prescription Opioid Use rn - Patient Portal Instructions rn - Leadership Thank You Letter rn Prescriptions: - albuterol sulfate 90 mcg/actuation Inhalation HFA Aerosol Inhaler - inhale 2 inhalation INHALATION route every 4 to 6 hours as needed for rn bronchospasm; administer via ventilator; 1 unit; Refills: 0, Product Selection Permitted - Prednisone 20 mg Oral Tablet - take 3 tablets ORAL route once daily for 5 days; 15 tablet; Refills: 0, Product rn Selection Permitted - Zithromax Z-Julián 250 mg Oral Tablet - take 1 tablet ORAL route as directed for 5 days Day 1 - take two (2) tablets rn one time. Day 2, 3, 4 , 5 take one (1) tablet once daily.; 6 tablet; Refills: 0, Product Selection Permitted Signatures: Dispatcher [employer] EDMS Blaise Rossi MD MD rn Sotelo, Ricky, RN RN rs5 Aj Colin RN RN tl4 Carmen Schwarz, RN RN pc2 Corrections: (The following items were deleted from the chart) 17:02 17:02 CBC+H.LAB.BRZ ordered. EDMS EDMS 17:02 17:02 BASIC METABOLIC PANEL+C.LAB.BRZ ordered. EDMS EDMS 17:02 17:02 HEPATIC FUNCTION+C.LAB.BRZ ordered. EDMS EDMS 17:02 17:02 LIPASE+C.LAB.BRZ ordered. EDMS EDMS 17:02 17:02 SARS-COV-2 Antigen Rapid+I.LAB.BRZ ordered. EDMS EDMS 17:02 17:02 Influenza Screen (A \T\ B)+BA.LAB.BRZ ordered. EDMS EDMS 17:02 17:02 PROBNP+C.LAB.BRZ ordered. EDMS EDMS 17:02 17:02 Chest Pa And Lat (2 Views)+RAD.RAD.BRZ ordered. EDMS EDMS
[2024-04-07] MEDS ORDERED: AZITHROMYCIN 250 MG TAB ONE (20:01)
[2024-04-07 20:24] VITALS: TEMP 98
[2024-04-07 20:34] VITALS: BP 118/73; O2SAT 100
== END 2024-04-07 20:08 | disposition home or self-care (01) ==
LOC: ER 16:44
DX: J44.1 Chronic obstructive pulmonary disease with (acute) exacerbation (principal); F17.210 Nicotine dependence, cigarettes, uncomplicated; I10 Essential (primary) hypertension; Z11.52 Encounter for screening for COVID-19; Z79.82 Long term (current) use of aspirin
CPT/HCPCS: 36415; 71046; 80048; 80076; 83690; 83880; 85025; 87804; 87811; 93005; 96361; 96374; 99285; J2919; J7040; J7614; J7644

== ENCOUNTER 2024-09-09 22:44 | Emergency (ER) | payer SELFPAY ==
--- NOTE | 2024-09-09 22:52 | EDPHYS ---
Physician Documentation [facility] Name: Choco Garcia Age: 49 yrs Sex: Male : 1975 Arrival Date: 09/09/2024 Time: 22:44 Bed IW3 Private MD: ED Physician Dangelo Rodriguez HPI: 09/09 22:53 This 49 yrs old Male presents to ER via Ambulatory with complaints of dental pain, ear sb4 pain. 22:57 patient reports dental pain x 4 days in his left lower jaw that radiates to his left sb4 ear. states he has been taking tylenol and motrin without relief. has not seen a dentist. states he last had dental work when he was in assisted. Historical: - Allergies: 22:52 No Known Allergies; cp4 - Immunization history:: Adult Immunizations up to date. - Infectious Disease History:: Denies. - Social history:: Smoking status: Patient reports the use of cigarette tobacco products, smokes one-half pack cigarettes per day. ROS: 22:57 Constitutional: Negative for fever, chills, and weight loss, sb4 22:57 ENT: Positive for dental pain, ear pain, 22:57 All other systems are negative, Exam: 22:57 Constitutional: This is a well developed, well nourished patient who is awake, alert, sb4 and in no acute distress. Head/Face: Normocephalic, atraumatic. Eyes: Extra-ocular motions intact. Periorbital areas with no swelling, redness, or edema. Respiratory: No increased work of breathing, no retractions or nasal flaring. Skin: Warm, dry with normal turgor. Normal color with no rashes, no lesions, and no evidence of cellulitis. 22:57 ENT: TM's: are normal, Dental exam: dental caries, that is moderate, specifically in the lower right second molar (#31), gum swelling, that is mild, specifically in the lower right second molar (#31), Vital Signs: 22:49 BP 144 / 96; Pulse 107; Resp 18; Temp 99.1; Pulse Ox 99% ; Weight 87.09 kg; Height 5 cp4 ft. 8 in. ; Pain 10/10; 22:49 Body Mass Index 29.19 (87.09 kg, 172.72 cm) cp4 22:49 Pain Scale: Adult cp4 MDM: 22:47 Medical Screening Exam initiated sb4 22:58 Data reviewed: vital signs, nurses notes, and as a result, I will discharge patient. sb4 Counseling: I had a detailed discussion with the patient and/or guardian regarding the historical points, exam findings, and any diagnostic results supporting the discharge/admit diagnosis, the need for outpatient follow up, a dentist, to return to the emergency department if symptoms worsen or persist or if there are any questions or concerns that arise at home. Administered Medications: 23:01 Drug: Amoxicillin-Clavulanate PO 875 mg PO once Route: PO; cp4 23:01 Follow up: Response: No adverse reaction cp4 23:01 Drug: Hydrocodone-Acetaminophen PO (7.5 mg-325 mg) 1 tabs PO once Route: PO; cp4 23:01 Follow up: Response: No adverse reaction cp4 Disposition: 23:43 Co-signature as Attending Physician, Dangelo Rodriguez MD I reviewed the patient's care rt provided by the Advanced Practice Provider and agree with the diagnosis and treatment plan. Disposition Summary: 09/09/24 22:51 Discharge Ordered Notes: Location: Home sb4 Problem: new sb4 Symptoms: have improved sb4 Condition: Stable sb4 Diagnosis - Dental caries, unspecified sb4 Followup: sb4 - With: Salvador Law DDS - When: 2 - 3 days - Reason: Recheck today's complaints, Re-evaluation by your physician Discharge Instructions: - Discharge Summary Sheet sb4 - Dental Caries, Adult sb4 - Dental Pain, [id number] sb4 Forms: - Antibiotic Education sb4 - Patient Portal Instructions sb4 - Leadership Thank You Letter sb4 Prescriptions: - Amoxicillin 875 mg Oral Tablet - take 1 tablet ORAL route every 12 hours for 10 days; 20 tablet; Refills: 0, sb4 Product Selection Permitted Signatures: Yenifer Dominique PA-C PA-C sb4 Dangelo Rodriguez MD MD rt Amy White cp4
--- NOTE | 2024-09-09 22:52 | ER ---
Nurse's Notes [facility] Name: Choco Garcia Age: 49 yrs Sex: Male : 1975 Arrival Date: 09/09/2024 Time: 22:44 Bed IW3 Private MD: Diagnosis: Dental caries, unspecified Presentation: 09/09 22:49 Chief complaint: Patient states: toothache on the right side that is causing jaw and cp4 ear pain. Coronavirus screen: Client denies travel out of the [place] in the last 14 days. At this time, the client does not indicate any symptoms associated with coronavirus-19. Ebola Screen: Patient negative for fever greater than or equal to 101.5 degrees Fahrenheit, and additional compatible Ebola Virus Disease symptoms Patient denies exposure to infectious person. Patient denies travel to an Ebola-affected area in the 21 days before illness onset. No symptoms or risks identified at this time. Initial Sepsis Screen: Does the patient meet any 2 criteria? HR > 90 bpm. No. Patient's initial sepsis screen is negative. Does the patient have a suspected source of infection? No. Patient's initial sepsis screen is negative. Risk Assessment: Do you want to hurt yourself or someone else? Patient reports no desire to harm self or others. Onset of symptoms was September 09, 2024. 22:49 Method Of Arrival: Ambulatory cp4 22:49 Acuity: BRENDA 4 cp4 Triage Assessment: 22:52 General: Appears in no apparent distress. uncomfortable, Behavior is calm, cooperative, cp4 appropriate for age. Pain: Complains of pain in right jaw Pain currently is 10 out of 10 on a pain scale. EENT: Parent/caregiver reports the patient having dental caries. Neuro: Level of Consciousness is awake, alert, obeys commands, Oriented to person, place, time, situation. Cardiovascular: Patient's skin is warm and dry. Respiratory: Airway is patent Respiratory effort is even, unlabored. GI: No signs and/or symptoms were reported involving the gastrointestinal system. : No signs and/or symptoms were reported regarding the genitourinary system. Derm: No signs and/or symptoms reported regarding the dermatologic system. Musculoskeletal: No signs and/or symptoms reported regarding the musculoskeletal system. Historical: - Allergies: 22:52 No Known Allergies; cp4 - Immunization history:: Adult Immunizations up to date. - Infectious Disease History:: Denies. - Social history:: Smoking status: Patient reports the use of cigarette tobacco products, smokes one-half pack cigarettes per day. Screenin:53 [facility] ED Fall Risk Assessment (Adult) History of falling in the last 3 months, cp4 including since admission No falls in past 3 months (0 pts) Confusion or Disorientation No (0 pts) Intoxicated or Sedated No (0 pts) Impaired Gait No (0 pts) Mobility Assist Device Used No (0 pt) Altered Elimination No (0 pt) Score/Fall Risk Level 0 - 2 = Low Risk Oriented to surroundings, Maintained a safe environment, Assessed \T\ reinforced patient's understanding of fall precautions, Hourly rounding (assess needs \T\ fall precautionary measures) done. Abuse screen: Denies threats or abuse. Denies injuries from another. Nutritional screening: No deficits noted. Tuberculosis screening: No symptoms or risk factors identified. Assessment: 22:53 Reassessment: No changes from previously documented assessment. cp4 Vital Signs: 22:49 BP 144 / 96; Pulse 107; Resp 18; Temp 99.1; Pulse Ox 99% ; Weight 87.09 kg; Height 5 cp4 ft. 8 in. ; Pain 10/10; 22:49 Body Mass Index 29.19 (87.09 kg, 172.72 cm) cp4 22:49 Pain Scale: Adult cp4 ED Course: 22:47 Patient arrived in ED. jj6 22:47 Yenifer Dominique [facility]-C [facility]. sb4 22:47 Dangelo Rodriguez MD is Attending Physician. sb4 22:51 Salvador Law DDS is Referral Physician. sb4 22:52 Triage completed. cp4 22:52 Arm band placed on right wrist. Patient placed in waiting room. cp4 22:53 Patient has correct armband on for positive identification. cp4 22:53 No provider procedures requiring assistance completed. Patient did not have IV access cp4 during this emergency room visit. 23:02 Provided Education on: dental caries. cp4 Administered Medications: 23:01 Drug: Amoxicillin-Clavulanate PO 875 mg PO once Route: PO; cp4 23:01 Follow up: Response: No adverse reaction cp4 23:01 Drug: Hydrocodone-Acetaminophen PO (7.5 mg-325 mg) 1 tabs PO once Route: PO; cp4 23:01 Follow up: Response: No adverse reaction cp4 Medication: 22:53 VIS not applicable for this client. cp4 Outcome: 22:51 Discharge ordered by . sb4 23:01 Discharged to home ambulatory, cp4 23:01 Condition: stable 23:01 Discharge instructions given to patient, Instructed on discharge instructions, follow up and referral plans. medication usage, Demonstrated understanding of instructions, follow-up care, medications, Prescriptions given X 1, 23:02 Patient left the ED. cp4 Signatures: Milena Reynaj6 Yenifer Dominique PA-C PA-C sb4 Amy White cp4
[2024-09-09] MEDS ORDERED: HYDROCODONE/APAP 7.5/325 MG TAB ONE (22:58)
[2024-09-09] MEDS ORDERED: AMOX/K CLAV 875 MG TAB ONE (22:58)
[2024-09-09 23:08] VITALS: BP 144/96; TEMP 99.1; O2SAT 99
== END 2024-09-09 23:02 | disposition home or self-care (01) ==
LOC: ER 22:44
DX: K02.9 Dental caries, unspecified (principal); F17.210 Nicotine dependence, cigarettes, uncomplicated
CPT/HCPCS: 99283

== ENCOUNTER 2024-12-04 17:23 | Emergency (ER) | payer SELFPAY ==
--- NOTE | 2024-12-04 18:04 | ER ---
Nurse's Notes [facility] Name: Choco Garcia Age: 49 yrs Sex: Male : 1975 Arrival Date: 12/04/2024 Time: 17:23 Bed 11 Private MD: Diagnosis: Pain in left knee Presentation: 12/04 17:56 Chief complaint: Patient states: left knee pain onset 1 month ago. pt states that he cm10 saw his pcp and is waiting to have an MRI scheduled. pt is requesting pain medicine at this time. Coronavirus screen: Client denies travel out of the [place] in the last 14 days. Ebola Screen: Patient denies travel to an Ebola-affected area in the 21 days before illness onset. Initial Sepsis Screen: Does the patient meet any 2 criteria? HR > 90 bpm. Does the patient have a suspected source of infection? No. Patient's initial sepsis screen is negative. Risk Assessment: Do you want to hurt yourself or someone else? Patient reports no desire to harm self or others. Onset of symptoms was December 04, 2024. 17:56 Method Of Arrival: Ambulatory cm10 17:56 Acuity: BRENDA 4 cm10 Triage Assessment: 17:58 General: Appears in no apparent distress. uncomfortable, Behavior is calm, cooperative. cm10 Pain: Complains of pain in left knee Pain currently is 10 out of 10 on a pain scale. Pain began 1 month ago. Neuro: No deficits noted. Level of Consciousness is awake, alert, obeys commands, Oriented to person, place, time, situation, Appropriate for age. Respiratory: No deficits noted. Airway is patent Respiratory effort is even, unlabored, Respiratory pattern is regular, symmetrical. Historical: - Allergies: 17:57 No Known Allergies; cm10 - PMHx: 17:57 COPD; CVA; Hypercholesterolemia; Hypertension; cm10 - Immunization history:: Adult Immunizations up to date. - Infectious Disease History:: Denies. - Social history:: Smoking status: unknown. Screenin:26 [facility] ED Fall Risk Assessment (Adult) History of falling in the last 3 months, ap3 including since admission Yes- single mechanical fall (1 pt) Confusion or Disorientation No (0 pts) Intoxicated or Sedated No (0 pts) Impaired Gait No (0 pts) Mobility Assist Device Used No (0 pt) Altered Elimination No (0 pt) Score/Fall Risk Level 0 - 2 = Low Risk Oriented to surroundings, Maintained a safe environment, Educated pt \T\ family on fall prevention, incl call for assistance when getting out of bed, Assessed \T\ reinforced patient's understanding of fall precautions, Hourly rounding (assess needs \T\ fall precautionary measures) done, Used ambulatory aids as needed (educated on \T\ assisted with). Abuse screen: Denies threats or abuse. Nutritional screening: No deficits noted. Tuberculosis screening: No symptoms or risk factors identified. Assessment: 18:25 General: Appears in no apparent distress. Behavior is calm. Pain: Complains of pain in ap3 left knee. Neuro: Level of Consciousness is awake, alert, obeys commands, Oriented to person, place, time, situation, Appropriate for age. Cardiovascular: Patient's skin is warm and dry. Respiratory: Airway is patent Respiratory effort is even, unlabored, Respiratory pattern is regular, symmetrical. Vital Signs: 17:56 BP 151 / 101; Pulse 107; Resp 18; Temp 98.1; Pulse Ox 99% on R/A; Weight 89.81 kg; cm10 Height 5 ft. 8 in. ; Pain 10/10; 17:56 Body Mass Index 30.11 (89.81 kg, 172.72 cm) cm10 17:56 Pain Scale: Adult cm10 ED Course: 17:29 Patient arrived in ED. cj3 17:31 Dangelo Rodriguez MD is Attending Physician. rt 17:57 Triage completed. cm10 17:58 Arm band placed on right wrist. Patient placed in waiting room. cm10 18:25 Tiffanie Jose, SEAN is Primary Nurse. ap3 18:26 Patient has correct armband on for positive identification. Placed in gown. Bed in low ap3 position. Call light in reach. 18:26 No provider procedures requiring assistance completed. Patient did not have IV access ap3 during this emergency room visit. 19:06 Provided Education on: crutches walking. ap3 Administered Medications: 18:39 Drug: Ketorolac IM 30 mg IM once Route: IM; Site: left deltoid; ap3 19:03 Follow up: Response: No adverse reaction; Pain is decreased ap3 Medication: 19:06 VIS not applicable for this client. ap3 Outcome: 18:03 Discharge ordered by . rt 19:12 Discharged to home ambulatory, ha1 19:12 Condition: stable 19:12 Discharge instructions given to patient, Instructed on discharge instructions, follow up and referral plans. Demonstrated understanding of instructions, follow-up care, 19:13 Patient left the ED. ha1 Signatures: Tiffanie Jose RN RN ap3 Ashley Parra RN RN ha1 Dangelo Rodriguez MD MD rt Radha Boogie RN RN 10 Vivienne Antunez [facility]
--- NOTE | 2024-12-04 18:04 | EDPHYS ---
Physician Documentation [facility] Name: Choco Garcia Age: 49 yrs Sex: Male : 1975 Arrival Date: 12/04/2024 Time: 17:23 Bed 11 Private MD: ED Physician Dangelo Rodriguez HPI: 12/04 19:04 This 49 yrs old Male presents to ER via Ambulatory with complaints of Left Knee Pain. rt 19:04 Patient presents to the ED with a left knee pain for about 2 months after he fell on rt it. Patient states that he had a negative x-ray of the knee, is waiting an MRI of the knee. States he has continued pain to the area. Gets occasional with ibuprofen denies other aggravating of any factors, symptoms are moderate in severity.. Historical: - Allergies: 17:57 No Known Allergies; cm10 - PMHx: 17:57 COPD; CVA; Hypercholesterolemia; Hypertension; cm10 - Immunization history:: Adult Immunizations up to date. - Infectious Disease History:: Denies. - Social history:: Smoking status: unknown. ROS: 19:23 Constitutional: Negative for fever, chills, and weight loss, Cardiovascular: Negative rt for chest pain, palpitations, and edema, Respiratory: Negative for shortness of breath, cough, wheezing, and pleuritic chest pain, Abdomen/GI: Negative for abdominal pain, nausea, vomiting, diarrhea, and constipation, Skin: Negative for injury, rash, and discoloration, Neuro: Negative for headache, weakness, numbness, tingling, and seizure, 19:23 MS/extremity: Positive for pain, swelling, Exam: 19:23 Constitutional: This is a well developed, well nourished patient who is awake, alert, rt and in no acute distress. Head/Face: Normocephalic, atraumatic. Chest/axilla: Normal chest wall appearance and motion. Nontender with no deformity. No lesions are appreciated. Cardiovascular: Regular rate and rhythm with a normal S1 and S2. No gallops, murmurs, or rubs. Normal PMI, no JVD. No pulse deficits. Respiratory: Lungs have equal breath sounds bilaterally, clear to auscultation and percussion. No rales, rhonchi or wheezes noted. No increased work of breathing, no retractions or nasal flaring. Abdomen/GI: Soft, non-tender, with normal bowel sounds. No distension or tympany. No guarding or rebound. No evidence of tenderness throughout. Skin: Warm, dry with normal turgor. Normal color with no rashes, no lesions, and no evidence of cellulitis. 19:23 Musculoskeletal/extremity: No appreciable swelling, overlying skin changes on left knee, skin is not warm. There is tenderness diffusely, no deformities noted. Vital Signs: 17:56 BP 151 / 101; Pulse 107; Resp 18; Temp 98.1; Pulse Ox 99% on R/A; Weight 89.81 kg; cm10 Height 5 ft. 8 in. ; Pain 10/10; 17:56 Body Mass Index 30.11 (89.81 kg, 172.72 cm) cm10 17:56 Pain Scale: Adult cm10 MDM: 18:01 Medical Screening Exam initiated rt 19:23 Differential Diagnosis Contusion, ligamentous injury. Data reviewed: vital signs, rt nurses notes. Test considered but Not performed: Other Details Patient already had an x-ray, does not wish to have repeat x-ray of the knee, inform patient that MRI was not available for this indication emergently. Patient clinically does not have signs or symptoms concerning for septic arthritis, do not believe that arthrocentesis is indicated. Care significantly affected by the following chronic conditions: Chronic Obstructive Pulmonary Disease. Counseling: I had a detailed discussion with the patient and/or guardian regarding the historical points, exam findings, and any diagnostic results supporting the discharge/admit diagnosis, the need for outpatient follow up, to return to the emergency department if symptoms worsen or persist or if there are any questions or concerns that arise at home. Response to treatment: the patient's symptoms have mildly improved after treatment. 12/04 18:02 Order name: Olvin Wrap; Complete Time: 18:39 rt 12/04 18:02 Order name: Crutch Training; Complete Time: 18:39 rt Administered Medications: 18:39 Drug: Ketorolac IM 30 mg IM once Route: IM; Site: left deltoid; ap3 19:03 Follow up: Response: No adverse reaction; Pain is decreased ap3 Disposition Summary: 12/04/24 18:03 Discharge Ordered Notes: Location: Home rt Problem: an ongoing problem rt Symptoms: are unchanged rt Condition: Stable rt Diagnosis - Pain in left knee rt Followup: rt - With: Private Physician - When: 2 - 3 days - Reason: Discharge Instructions: - Discharge Summary Sheet rt - Acute Knee Pain, Adult rt Forms: - Medication Reconciliation Form rt - Antibiotic Education rt - Prescription Opioid Use rt - Patient Portal Instructions rt - Leadership Thank You Letter rt Prescriptions: - Tramadol 50 mg Oral tablet - take 1 tablet ORAL route every 8 hours as needed; 18 tablet; Refills: 0, rt Product Selection Permitted Signatures: Tiffanie Jose RN RN ap3 Dangelo Rodriguez MD MD rt Radha Boogie RN RN cm10
[2024-12-04] MEDS ORDERED: KETOROLAC 30 MG/ML INJ ONE (18:31)
[2024-12-04 19:49] VITALS: BP 151/101; TEMP 98.1; O2SAT 99
== END 2024-12-04 19:13 | disposition home or self-care (01) ==
LOC: ER 17:23
DX: M25.562 Pain in left knee (principal)
CPT/HCPCS: 96372; 99284